=== PATIENT | male | born 1960 | race Two or more races ===

== ENCOUNTER 2021-06-22 11:17 | Inpatient (IN) | payer OTHER ==
[~2021-06-22] VITALS: Ht 188 cm; Wt 114.3 kg
[2021-06-22] VITALS (7 sets, daily range): BP systolic 119–169; BP diastolic 51–73
[2021-06-22] MEDS ORDERED: InsuLIN REG 1unit/0.01ml Soln (100units/ml) IV ONE ×2 (11:30→15:45)
[2021-06-22] MEDS ORDERED: InsuLIN R (HUMAN) 100 UNITS in SODIUM CHL 0.9% 99 ML IV SCH ×2 (11:30→21:15)
[2021-06-22] MEDS ORDERED: INSULIN LANTUS (GLARGINE) 1 /0.01ml (100units/ml) SC ONE (11:30)
[2021-06-22] MEDS ORDERED: DEXTROSE (50%) 50ML SYRG IV PRN ×2 (11:30→14:45)
[2021-06-22] MEDS ORDERED: SODIUM CHLORIDE 0.9% 1,000 ML IVB ONE (11:30)
[2021-06-22] MEDS ORDERED: SUCCINYLCHOLINE CHLORIDE 20 MG/ML 10ML VIAL IV ONE ×2 (13:01→13:15)
[2021-06-22] MEDS ORDERED: MIDAZOLAM DRIP 50 mg/50mL 50 ML IV ONE (13:01)
[2021-06-22] MEDS ORDERED: ETOMIDATE (2MG/ML) 20ML VIAL IV ONE ×2 (13:01→13:15)
[2021-06-22 13:10] LABS: Basophils # (auto) 0.1 10 ^3/uL (0-0.2); Eosinophils # (auto) 0 10 ^3/uL (0-0.8); Hemoglobin 16.2 g/dL (13.5-17.5); Neutrophils % (auto) 88.1 % (37.0-80.0)
[2021-06-22] MEDS: MIDAZOLAM DRIP 50 mg/50mL 50 ML IV SCH ×4 (13:10→22:57)
[2021-06-22 13:12] LABS: Basophils % (auto) 0.3 % (0.0-2.0); Hematocrit 52.9 % (41.0-53.0); Lymphocytes # (auto) 0.6 10 ^3/uL (0.4-5.4); Lymphocytes % (auto) 3.1 % (10.0-50.0); Mean Corpuscular Hemoglobin 28.7 pg (28.0-32.0); Mean Corpuscular Hgb Conc. 30.7 g/dL (32.0-36.0); Mean Corpuscular Volume 93.6 fL (80.0-100.0); Monocytes # (auto) 1.7 10 ^3/uL (0-1.3); Monocytes % (auto) 8.5 % (0.0-12.0); Neutrophils # (auto) 17.5 10 ^3/uL (1.6-8.6); Red Blood Cells 5.65 10^6/uL (4.5-5.90); Red Cell Distribution Width 15.6 % (11.8-14.3); White Blood Cell 19.9 10^3/uL (4.4-10.8)
[2021-06-22 13:20] LABS: Urine Bacteria NONE SEEN /hpf (None Seen); Urine Blood 3+ /uL (Negative); Urine Specific Gravity 1.028 (1.001-1.035); Urine WBC 3 /hpf (0 - 3)
[2021-06-22] MEDS: fentaNYL Drip 2500mCg/250mlNS 250 ML IV SCH (13:25)
[2021-06-22 13:38] LABS: Albumin 3.2 g/dL (3.4-5.0); Calcium 9.8 mg/dL (8.5-10.1); Magnesium 3.4 mg/dL (1.6-2.6); Potassium 5.2 mmol/L (3.5-5.1)
[2021-06-22] MEDS: ACCU-CHEK COMFORT CURVE STRIP VI SCH ×9 (13:42→23:58)
[2021-06-22] MEDS ORDERED: SODIUM BICARBONATE 8.4 % INJ 50ML VIAL IV ONE ×2 (13:45→16:45)
[2021-06-22 13:47] LABS: CRP High Sensitivity 8.47 mg/dL (< 0.3)
[2021-06-22 14:08] LABS: BUN/Creatinine Ratio 23.3; Bilirubin, Total 0.6 mg/dL (0.2-1.0); Total Protein 8.4 g/dL (6.4-8.2)
[2021-06-22] MEDS ORDERED: MORPHINE SULFATE INJECTION 2 MG/ML SYRG IV PRN (14:15)
[2021-06-22] MEDS ORDERED: SODIUM CHLORIDE 0.9% IV ONE (14:15)
[2021-06-22] MEDS ORDERED: cefTRIAXone 1GM/50ML D5W 50 ML IV ONE (14:15)
[2021-06-22] MEDS ORDERED: NITROGLYCERIN 0.4 MG SL TAB SL PRN (14:15)
[2021-06-22 14:30] LABS: Lactic Acid w/Reflex 4.7 mmol/L (0.4-2.0)
[2021-06-22] MEDS ORDERED: SODIUM CHLORIDE 0.9% 3,250 ML IV ONE (14:45)
[2021-06-22] MEDS: InsuLIN R (HUMAN) 100 UNITS in SODIUM CHL 0.9% 99 ML IV SCH ×3 (15:18→16:54)
[2021-06-22] MEDS: SODIUM CHLORIDE 0.9% 1,000 ML IV SCH ×3 (15:24→22:27)
[2021-06-22] MEDS ORDERED: SODIUM BICARBONATE 50ML VIAL 50 ML in SOD CHL 0.45% 1,000 ML IV ONE (15:45)
[2021-06-22 15:46] LABS: Calcium 9.1 mg/dL (8.5-10.1)
[2021-06-22 15:48] LABS: Amylase 261 U/L (25-115); Lipase 359 U/L (73-393)
[2021-06-22 16:17] LABS: BUN/Creatinine Ratio 24.4; Potassium 5.6 mmol/L (3.5-5.1)
[2021-06-22] MEDS ORDERED: FUROSEMIDE 40 MG/4 ML VIAL IV ONE (16:45)
[2021-06-22 16:55] LABS: Alcohol, Urine < 3.0 mg/dL (0-10); Amphetamine Screen, Urine NEGATIVE (NEGATIVE); Benzodiazephine Screen, Urine NEGATIVE (NEGATIVE); Cannabinoid Screen, Urine NEGATIVE (NEGATIVE); Cocaine Screen, Urine NEGATIVE (NEGATIVE); Opiate Scree,Urine NEGATIVE (NEGATIVE); Phencyclidine Screen, Urine NEGATIVE (NEGATIVE)
[2021-06-22 17:00] LABS: Barbiturate Scree,Urine NEGATIVE (NEGATIVE)
[2021-06-22] MEDS ORDERED: SODIUM CHLORIDE 0.9% 1,000 ML IV SCH (18:15)
[2021-06-22 18:42] LABS: Anion Gap 19 (5-15); BUN/Creatinine Ratio 22.7; Blood Urea Nitrogen 65 mg/dL (7-18); Calcium 8.6 mg/dL (8.5-10.1); Carbon Dioxide 14 mmol/L (21-32); Chloride 111 mmol/L (98-107); GFR African American 29 mL/min; GFR Non-African American 24 mL/min; Potassium 4.5 mmol/L (3.5-5.1); Sodium 144 mmol/L (136-145)
[2021-06-22 18:58] LABS: Glucose 571 mg/dL (74-106)
[2021-06-23] VITALS (10 sets, daily range): BP systolic 116–150; BP diastolic 67–76
[2021-06-23 01:07] LABS: Potassium 3.2 mmol/L (3.5-5.1)
[2021-06-23 01:09] LABS: BUN/Creatinine Ratio 23.5
[2021-06-23] MEDS: ACCU-CHEK COMFORT CURVE STRIP VI SCH ×11 (01:38→20:00)
[2021-06-23] MEDS: SODIUM CHLORIDE 0.9% 1,000 ML IV SCH ×3 (02:55→16:18)
[2021-06-23] MEDS: fentaNYL Drip 2500mCg/250mlNS 250 ML IV SCH ×2 (03:38→23:00)
[2021-06-23 05:19] LABS: Basophils # (auto) 0 10 ^3/uL (0-0.2); Basophils % (auto) 0.1 % (0.0-2.0); Eosinophils # (auto) 0 10 ^3/uL (0-0.8); Eosinophils % (auto) 0.1 % (0.0-7.0); Hematocrit 41.8 % (41.0-53.0); Lymphocytes # (auto) 0.7 10 ^3/uL (0.4-5.4); Lymphocytes % (auto) 4.9 % (10.0-50.0); Mean Corpuscular Hemoglobin 28.9 pg (28.0-32.0); Mean Corpuscular Hgb Conc. 33.4 g/dL (32.0-36.0); Mean Corpuscular Volume 86.5 fL (80.0-100.0); Monocytes # (auto) 1.2 10 ^3/uL (0-1.3); Monocytes % (auto) 8.3 % (0.0-12.0); Neutrophils # (auto) 12.3 10 ^3/uL (1.6-8.6); Neutrophils % (auto) 86.6 % (37.0-80.0); Nucleated Red Blood Cells % 0.1 %; Red Blood Cells 4.83 10^6/uL (4.5-5.90); Red Cell Distribution Width 14.5 % (11.8-14.3); White Blood Cell 14.2 10^3/uL (4.4-10.8)
[2021-06-23] MEDS ORDERED: InsuLIN REG 1unit/0.01ml Soln (100units/ml) ONE (05:20)
[2021-06-23 05:34] LABS: Albumin 2.4 g/dL (3.4-5.0); Calcium 8.1 mg/dL (8.5-10.1); Potassium 3.2 mmol/L (3.5-5.1)
[2021-06-23 05:36] LABS: BUN/Creatinine Ratio 24.6
[2021-06-23 05:39] LABS: Bilirubin, Total 0.4 mg/dL (0.2-1.0); Total Protein 6.7 g/dL (6.4-8.2)
[2021-06-23] MEDS: MIDAZOLAM DRIP 50 mg/50mL 50 ML IV SCH ×2 (05:47→20:40)
[2021-06-23] MEDS ORDERED: InsuLIN R (HUMAN) 100 UNITS in SODIUM CHL 0.9% 99 ML IV SCH (07:45)
[2021-06-23] MEDS: cefTRIAXone 1GM/50ML D5W 50 ML IV SCH (09:30)
[2021-06-23] MEDS ORDERED: INSULIN LANTUS (GLARGINE) 1 /0.01ml (100units/ml) SC SCH ×2 (10:00)
[2021-06-23] MEDS: PANTOPRAZOLE 40 MG/10 ML VIAL INJ IV SCH (10:01)
[2021-06-23] MEDS ORDERED: DEXTROSE (50%) 50ML SYRG IV PRN (16:45)
[2021-06-23] MEDS ORDERED: REMDESIVIR PER PHARMACY 0 ML IV SCH (17:00)
[2021-06-23] MEDS ORDERED: ALBUTEROL SULF HFA 90MCG INH 200DOSE IN PRN (17:00)
[2021-06-23] MEDS ORDERED: D5W/SOD CHL 0.45% 1,000 ML IV SCH (17:00)
[2021-06-23] MEDS: SOD CHL 0.45% 1,000 ML IV SCH (17:48)
[2021-06-23] MEDS: ZINC SULFATE 220mg CAP or TAB PO SCH (17:54)
[2021-06-23] MEDS: ASCORBIC ACID 1,000 MG TAB PO SCH (17:54)
[2021-06-23] MEDS: IVERMECTIN 3 MG TAB PO SCH (17:56)
[2021-06-23] MEDS: CHOLECALCIFEROL (VITD3) 2,000 UNIT CAP/TAB PO SCH (17:56)
[2021-06-23] MEDS: IPRATROPIUM BROMIDE HFA AER IN SCH ×2 (18:00→22:00)
[2021-06-23] MEDS ORDERED: REMDESIVIR 200 MG in NS 210ml LOADING DOSE ADULT IV ONE (18:30)
[2021-06-23] MEDS: InsuLIN REG 1unit/0.01ml Soln (100units/ml) SC SCH (20:22)
[2021-06-23] MEDS: ENOXAPARIN SOD 40 MG/0.4 ML SYRINGE SC SCH (22:00)
[2021-06-23] MEDS ORDERED: BUDESONIDE (INHALATION) 180 MCG IH IN SCH (22:00)
[2021-06-23] MEDS: INSULIN LANTUS (GLARGINE) 1 /0.01ml (100units/ml) SC SCH (23:47)
[2021-06-24] VITALS (8 sets, daily range): BP systolic 108–138; BP diastolic 46–84
[2021-06-24] MEDS: ACCU-CHEK COMFORT CURVE STRIP VI SCH ×7 (00:13→23:37)
[2021-06-24] MEDS: InsuLIN REG 1unit/0.01ml Soln (100units/ml) SC SCH ×7 (00:15→23:40)
[2021-06-24] MEDS: MIDAZOLAM DRIP 50 mg/50mL 50 ML IV SCH ×4 (00:26→21:25)
[2021-06-24] MEDS: SOD CHL 0.45% 1,000 ML IV SCH ×2 (06:20→21:22)
[2021-06-24] MEDS: fentaNYL Drip 2500mCg/250mlNS 250 ML IV SCH (06:25)
[2021-06-24] MEDS: IPRATROPIUM BROM 0.5 MG/2.5ML INH SOL NEB SCH ×3 (07:20→22:00)
[2021-06-24] MEDS: BUDESONIDE (INHALATION) 0.5 MG/2 ML NEB NEB SCH ×2 (09:39→22:00)
[2021-06-24] MEDS: cefTRIAXone 1GM/50ML D5W 50 ML IV SCH (10:14)
[2021-06-24] MEDS ORDERED: ROCURONIUM 10MG/ML 10ML VIAL IV ONE (10:30)
[2021-06-24] MEDS ORDERED: ETOMIDATE (2MG/ML) 20ML VIAL IV ONE (10:30)
[2021-06-24] MEDS: NOREPINEPHRINE 8 MG/250ML KIT 250 ML IV SCH (10:30)
[2021-06-24] MEDS: PROPOFOL 100 ML IV SCH (10:30)
[2021-06-24] MEDS: PANTOPRAZOLE 40 MG/10 ML VIAL INJ IV SCH (10:45)
[2021-06-24] MEDS: ZINC SULFATE 220mg CAP or TAB PO SCH (11:35)
[2021-06-24] MEDS: IVERMECTIN 3 MG TAB PO SCH (11:35)
[2021-06-24] MEDS: ENOXAPARIN SOD 40 MG/0.4 ML SYRINGE SC SCH ×2 (11:36→22:01)
[2021-06-24] MEDS: ASCORBIC ACID 1,000 MG TAB PO SCH (11:36)
[2021-06-24] MEDS: CHOLECALCIFEROL (VITD3) 2,000 UNIT CAP/TAB PO SCH (11:36)
[2021-06-24 11:37] LABS: Albumin 1.7 g/dL (3.4-5.0); Calcium 8.2 mg/dL (8.5-10.1); Magnesium 3.3 mg/dL (1.6-2.6); Potassium 3.9 mmol/L (3.5-5.1)
[2021-06-24 11:40] LABS: BUN/Creatinine Ratio 25.7; Bilirubin, Total 0.5 mg/dL (0.2-1.0); Total Protein 6.4 g/dL (6.4-8.2)
[2021-06-24] MEDS ORDERED: REMDESIVIR 100mg 100 MG in SODIUM CHL 0.9% 230 ML IV SCH (15:00)
[2021-06-24] MEDS: FREE WATER GT SCH ×2 (18:00→22:01)
[2021-06-24] MEDS: INSULIN LANTUS (GLARGINE) 1 /0.01ml (100units/ml) SC SCH (22:00)
[2021-06-24 22:29] LABS: Basophils # (auto) 0.1 10 ^3/uL (0-0.2); Basophils % (auto) 0.5 % (0.0-2.0); Eosinophils # (auto) 0.1 10 ^3/uL (0-0.8); Hematocrit 42.6 % (41.0-53.0); Lymphocytes # (auto) 0.7 10 ^3/uL (0.4-5.4); Mean Corpuscular Hemoglobin 28.5 pg (28.0-32.0); Mean Corpuscular Hgb Conc. 32.8 g/dL (32.0-36.0); Mean Corpuscular Volume 86.8 fL (80.0-100.0); Monocytes # (auto) 0.7 10 ^3/uL (0-1.3); Monocytes % (auto) 6.1 % (0.0-12.0); Neutrophils # (auto) 9.7 10 ^3/uL (1.6-8.6); Neutrophils % (auto) 86.4 % (37.0-80.0); Red Blood Cells 4.91 10^6/uL (4.5-5.90); Red Cell Distribution Width 15.1 % (11.8-14.3); White Blood Cell 11.2 10^3/uL (4.4-10.8)
[2021-06-24 23:23] LABS: INR 1.08 (0.9-1.15)
[2021-06-25] VITALS (12 sets, daily range): BP systolic 102–120; BP diastolic 41–77
[2021-06-25] MEDS: MIDAZOLAM DRIP 50 mg/50mL 50 ML IV SCH (03:36)
[2021-06-25] MEDS: FREE WATER GT SCH ×6 (03:36→22:01)
[2021-06-25] MEDS: ACCU-CHEK COMFORT CURVE STRIP VI SCH ×4 (03:45→18:18)
[2021-06-25] MEDS: InsuLIN REG 1unit/0.01ml Soln (100units/ml) SC SCH ×4 (04:19→18:18)
[2021-06-25] MEDS ORDERED: ACETAMINOPHEN 650 mg PER 20.3 mL UD NG ONE (05:45)
[2021-06-25] MEDS: IPRATROPIUM BROM 0.5 MG/2.5ML INH SOL NEB SCH ×2 (07:00→13:55)
[2021-06-25] MEDS: ALBUTEROL SULF 2.5 MG/0.5ML(0.5%) NEB SOLN NEB PRN ×2 (07:01→13:55)
[2021-06-25] MEDS: BUDESONIDE (INHALATION) 0.5 MG/2 ML NEB NEB SCH (07:01)
[2021-06-25 07:41] LABS: Albumin 1.8 g/dL (3.4-5.0); BUN/Creatinine Ratio 25.5; Calcium 8.2 mg/dL (8.5-10.1); Potassium 3.5 mmol/L (3.5-5.1)
[2021-06-25 07:43] LABS: Bilirubin, Total 0.5 mg/dL (0.2-1.0); Total Protein 5.7 g/dL (6.4-8.2)
[2021-06-25] MEDS ORDERED: DEXTROSE (50%) 50ML SYRG IV PRN (09:15)
[2021-06-25] MEDS: D5W 5% 1,000 ML IV SCH ×2 (09:39→20:19)
[2021-06-25] MEDS: cefTRIAXone 1GM/50ML D5W 50 ML IV SCH (09:40)
[2021-06-25] MEDS: NOREPINEPHRINE 8 MG/250ML KIT 250 ML IV SCH (10:30)
[2021-06-25] MEDS: fentaNYL Drip 2500mCg/250mlNS 250 ML IV SCH (10:30)
[2021-06-25] MEDS: PROPOFOL 100 ML IV SCH (10:30)
[2021-06-25] MEDS: PANTOPRAZOLE 40 MG/10 ML VIAL INJ IV SCH (10:44)
[2021-06-25] MEDS: ZINC SULFATE 220mg CAP or TAB PO SCH (10:46)
[2021-06-25] MEDS: ASCORBIC ACID 1,000 MG TAB PO SCH (10:47)
[2021-06-25] MEDS: IVERMECTIN 3 MG TAB PO SCH (10:47)
[2021-06-25] MEDS: CHOLECALCIFEROL (VITD3) 2,000 UNIT CAP/TAB PO SCH (10:48)
[2021-06-25] MEDS: ENOXAPARIN SOD 100 MG/1 ML SYRINGE SC SCH ×2 (10:58→22:01)
[2021-06-25] MEDS ORDERED: REMDESIVIR 100mg 100 MG in SODIUM CHL 0.9% 230 ML IV SCH ×3 (15:00→20:00)
[2021-06-25] MEDS ORDERED: MICAFUNGIN SODIUM 100 MG in SODIUM CHL 0.9% 100 ML IV ONE (16:15)
[2021-06-25] MEDS ORDERED: ACETAMINOPHEN 650 mg PER 20.3 mL UD PO PRN (18:15)
[2021-06-25] MEDS: INSULIN LANTUS (GLARGINE) 1 /0.01ml (100units/ml) SC SCH (22:15)
[2021-06-26] VITALS (43 sets, daily range): BP systolic 104–169; BP diastolic 61–93
[2021-06-26] MEDS: ACCU-CHEK COMFORT CURVE STRIP VI SCH ×4 (00:04→17:53)
[2021-06-26] MEDS: InsuLIN REG 1unit/0.01ml Soln (100units/ml) SC SCH ×4 (00:07→17:53)
[2021-06-26] MEDS: ALBUTEROL SULF 2.5 MG/0.5ML(0.5%) NEB SOLN NEB PRN ×3 (00:51→18:56)
[2021-06-26] MEDS: BUDESONIDE (INHALATION) 0.5 MG/2 ML NEB NEB SCH ×3 (00:52→18:55)
[2021-06-26] MEDS: IPRATROPIUM BROM 0.5 MG/2.5ML INH SOL NEB SCH ×4 (00:52→18:56)
[2021-06-26] MEDS: D5W 5% 1,000 ML IV SCH ×3 (01:15→17:15)
[2021-06-26] MEDS: FREE WATER GT SCH ×6 (02:05→21:12)
[2021-06-26 07:33] LABS: Albumin 1.7 g/dL (3.4-5.0); Potassium 3.6 mmol/L (3.5-5.1)
[2021-06-26 07:38] LABS: Basophils # (auto) 0.1 10 ^3/uL (0-0.2); Basophils % (auto) 0.6 % (0.0-2.0); Eosinophils # (auto) 0.2 10 ^3/uL (0-0.8); Eosinophils % (auto) 1.4 % (0.0-7.0); Hematocrit 42.7 % (41.0-53.0); Lymphocytes # (auto) 1.5 10 ^3/uL (0.4-5.4); Lymphocytes % (auto) 10.2 % (10.0-50.0); Mean Corpuscular Hemoglobin 28.8 pg (28.0-32.0); Mean Corpuscular Hgb Conc. 32.7 g/dL (32.0-36.0); Monocytes # (auto) 1.1 10 ^3/uL (0-1.3); Monocytes % (auto) 7.2 % (0.0-12.0); Neutrophils # (auto) 11.9 10 ^3/uL (1.6-8.6); Neutrophils % (auto) 80.6 % (37.0-80.0); Nucleated Red Blood Cells % 0.2 %; Red Blood Cells 4.85 10^6/uL (4.5-5.90); Red Cell Distribution Width 15.7 % (11.8-14.3); White Blood Cell 14.7 10^3/uL (4.4-10.8)
[2021-06-26 07:39] LABS: BUN/Creatinine Ratio 21.3; Bilirubin, Total 0.4 mg/dL (0.2-1.0); Total Protein 6.5 g/dL (6.4-8.2)
[2021-06-26] MEDS: cefTRIAXone 1GM/50ML D5W 50 ML IV SCH (08:34)
[2021-06-26] MEDS: PANTOPRAZOLE 40 MG/10 ML VIAL INJ IV SCH ×2 (08:35→21:07)
[2021-06-26] MEDS: IVERMECTIN 3 MG TAB PO SCH (08:35)
[2021-06-26] MEDS: CHOLECALCIFEROL (VITD3) 2,000 UNIT CAP/TAB PO SCH (08:35)
[2021-06-26] MEDS: ASCORBIC ACID 1,000 MG TAB PO SCH (08:35)
[2021-06-26] MEDS: ZINC SULFATE 220mg CAP or TAB PO SCH (08:35)
[2021-06-26] MEDS: ENOXAPARIN SOD 100 MG/1 ML SYRINGE SC SCH ×2 (10:00→21:07)
[2021-06-26] MEDS ORDERED: MICAFUNGIN SODIUM 100 MG in SODIUM CHL 0.9% 100 ML IV SCH (10:00)
[2021-06-26] MEDS: fentaNYL Drip 2500mCg/250mlNS 250 ML IV SCH ×2 (10:30→20:00)
[2021-06-26] MEDS: PROPOFOL 100 ML IV SCH ×2 (10:30→22:29)
[2021-06-26] MEDS: MIDAZOLAM DRIP 50 mg/50mL 50 ML IV SCH (10:30)
[2021-06-26] MEDS: NOREPINEPHRINE 8 MG/250ML KIT 250 ML IV SCH (10:30)
[2021-06-26] MEDS ORDERED: D5W 5% IV SCH (10:45)
[2021-06-26] MEDS ORDERED: VORICONAZOLE IV SCH (10:45)
[2021-06-26] MEDS ORDERED: REMDESIVIR PER PHARMACY 0 ML IV SCH (14:30)
[2021-06-26] MEDS: REMDESIVIR 100mg 100 MG in SODIUM CHL 0.9% 230 ML IV SCH (17:00)
[2021-06-26] MEDS ORDERED: MIDAZOLAM DRIP 50 mg/50mL 50 ML IV SCH (18:15)
[2021-06-26 18:58] LABS: Basophils # (auto) 0 10 ^3/uL (0-0.2); Basophils % (auto) 0.3 % (0.0-2.0); Eosinophils # (auto) 0.1 10 ^3/uL (0-0.8); Hematocrit 38.6 % (41.0-53.0); Hemoglobin 12.5 g/dL (13.5-17.5); Lymphocytes # (auto) 0.8 10 ^3/uL (0.4-5.4); Lymphocytes % (auto) 5.8 % (10.0-50.0); Mean Corpuscular Hemoglobin 28.5 pg (28.0-32.0); Mean Corpuscular Hgb Conc. 32.3 g/dL (32.0-36.0); Mean Corpuscular Volume 88.3 fL (80.0-100.0); Monocytes # (auto) 0.9 10 ^3/uL (0-1.3); Monocytes % (auto) 6.8 % (0.0-12.0); Neutrophils # (auto) 11.4 10 ^3/uL (1.6-8.6); Neutrophils % (auto) 86.1 % (37.0-80.0); Red Blood Cells 4.37 10^6/uL (4.5-5.90); Red Cell Distribution Width 15.4 % (11.8-14.3); White Blood Cell 13.3 10^3/uL (4.4-10.8)
[2021-06-26 19:26] LABS: Albumin 1.6 g/dL (3.4-5.0); Magnesium 2.7 mg/dL (1.6-2.6); Potassium 3.8 mmol/L (3.5-5.1)
[2021-06-26 19:30] LABS: BUN/Creatinine Ratio 19.5; Bilirubin, Total 0.2 mg/dL (0.2-1.0); Phosphorus 2.4 mg/dL (2.5-4.90)
[2021-06-26] MEDS ORDERED: VORICONAZOLE INJ 0 MG in D5W 5% 250 ML IV SCH (22:00)
[2021-06-26] MEDS: INSULIN LANTUS (GLARGINE) 1 /0.01ml (100units/ml) SC SCH (22:03)
[2021-06-26] MEDS: VORICONAZOLE INJ 400 MG in D5W 5% 250 ML IV SCH (22:30)
[2021-06-27] VITALS (107 sets, daily range): BP systolic 92–159; BP diastolic 56–85
[2021-06-27] MEDS: ACCU-CHEK COMFORT CURVE STRIP VI SCH ×4 (00:09→18:38)
[2021-06-27] MEDS: PROPOFOL 100 ML IV SCH ×2 (00:33→09:16)
[2021-06-27] MEDS: FREE WATER GT SCH ×6 (00:36→22:00)
[2021-06-27 01:43] LABS: Urine Amorphous Crystal FEW /hpf (None Seen); Urine Bacteria NONE SEEN /hpf (None Seen); Urine Blood 3+ /uL (Negative); Urine Hyaline Cast FEW /lpf (0 - 2); Urine Mucus FEW (None Seen); Urine WBC 15 /hpf (0 - 3)
[2021-06-27 04:54] LABS: Basophils # (auto) 0.1 10 ^3/uL (0-0.2); Basophils % (auto) 1.1 % (0.0-2.0); Eosinophils # (auto) 0.1 10 ^3/uL (0-0.8); Eosinophils % (auto) 1.1 % (0.0-7.0); Hematocrit 36.1 % (41.0-53.0); Hemoglobin 11.9 g/dL (13.5-17.5); Lymphocytes # (auto) 0.8 10 ^3/uL (0.4-5.4); Mean Corpuscular Hemoglobin 29.1 pg (28.0-32.0); Mean Corpuscular Hgb Conc. 32.9 g/dL (32.0-36.0); Mean Corpuscular Volume 88.5 fL (80.0-100.0); Monocytes # (auto) 0.8 10 ^3/uL (0-1.3); Monocytes % (auto) 6.3 % (0.0-12.0); Neutrophils # (auto) 10.8 10 ^3/uL (1.6-8.6); Neutrophils % (auto) 85.5 % (37.0-80.0); Nucleated Red Blood Cells % 0.1 %; Red Blood Cells 4.08 10^6/uL (4.5-5.90); Red Cell Distribution Width 15.3 % (11.8-14.3); White Blood Cell 12.6 10^3/uL (4.4-10.8)
[2021-06-27 05:11] LABS: Albumin 1.5 g/dL (3.4-5.0); Calcium 7.9 mg/dL (8.5-10.1); Magnesium 2.7 mg/dL (1.6-2.6); Potassium 3.3 mmol/L (3.5-5.1)
[2021-06-27] MEDS: fentaNYL Drip 2500mCg/250mlNS 250 ML IV SCH (05:18)
[2021-06-27 05:19] LABS: BUN/Creatinine Ratio 17.6; Bilirubin, Total 0.2 mg/dL (0.2-1.0); CRP High Sensitivity 16.7 mg/dL (< 0.3); Total Protein 5.7 g/dL (6.4-8.2)
[2021-06-27 05:27] LABS: INR 1.08 (0.9-1.15)
[2021-06-27] MEDS: BUDESONIDE (INHALATION) 0.5 MG/2 ML NEB NEB SCH ×2 (06:06→22:18)
[2021-06-27] MEDS: ALBUTEROL SULF 2.5 MG/0.5ML(0.5%) NEB SOLN NEB PRN ×2 (06:06→22:18)
[2021-06-27] MEDS: IPRATROPIUM BROM 0.5 MG/2.5ML INH SOL NEB SCH ×3 (06:06→22:18)
[2021-06-27] MEDS: InsuLIN REG 1unit/0.01ml Soln (100units/ml) SC SCH ×4 (06:15→18:40)
[2021-06-27] MEDS: cefTRIAXone 1GM/50ML D5W 50 ML IV SCH (09:15)
[2021-06-27] MEDS: ENOXAPARIN SOD 100 MG/1 ML SYRINGE SC SCH ×2 (10:19→21:59)
[2021-06-27] MEDS: PANTOPRAZOLE 40 MG/10 ML VIAL INJ IV SCH ×2 (10:19→21:59)
[2021-06-27] MEDS: ZINC SULFATE 220mg CAP or TAB PO SCH (10:20)
[2021-06-27] MEDS: CHOLECALCIFEROL (VITD3) 2,000 UNIT CAP/TAB PO SCH (10:20)
[2021-06-27] MEDS: ASCORBIC ACID 1,000 MG TAB PO SCH (10:20)
[2021-06-27] MEDS: NOREPINEPHRINE 8 MG/250ML KIT 250 ML IV SCH (10:30)
[2021-06-27] MEDS: VORICONAZOLE INJ 400 MG in D5W 5% 250 ML IV SCH ×2 (12:46→21:59)
[2021-06-27] MEDS ORDERED: MEROPENEM 1GM IVPB 100 ML IV ONE (14:15)
[2021-06-27] MEDS: D5W 5% 1,000 ML IV SCH (15:37)
[2021-06-27] MEDS: REMDESIVIR 100mg 100 MG in SODIUM CHL 0.9% 230 ML IV SCH (15:37)
[2021-06-27] MEDS: ACETAMINOPHEN 650 mg PER 20.3 mL UD PO PRN (15:44)
[2021-06-27] MEDS: INSULIN LANTUS (GLARGINE) 1 /0.01ml (100units/ml) SC SCH (22:00)
[2021-06-27] MEDS ORDERED: MEROPENEM 1GM IVPB 100 ML IV SCH (22:00)
[2021-06-27] MEDS: POTASSIUM CHL 20MEQ/100ML 100 ML IV SCH (23:45)
[2021-06-28] VITALS (102 sets, daily range): BP systolic 107–159; BP diastolic 59–92
[2021-06-28] MEDS: ACCU-CHEK COMFORT CURVE STRIP VI SCH ×5 (00:03→23:50)
[2021-06-28] MEDS: InsuLIN REG 1unit/0.01ml Soln (100units/ml) SC SCH ×5 (00:12→23:50)
[2021-06-28] MEDS: D5W 5% 1,000 ML IV SCH (00:15)
[2021-06-28] MEDS: FREE WATER GT SCH ×6 (01:30→22:00)
[2021-06-28] MEDS: POTASSIUM CHL 20MEQ/100ML 100 ML IV SCH (01:45)
[2021-06-28 05:11] LABS: Basophils # (auto) 0 10 ^3/uL (0-0.2); Basophils % (auto) 0.2 % (0.0-2.0); Eosinophils # (auto) 0.1 10 ^3/uL (0-0.8); Eosinophils % (auto) 1.1 % (0.0-7.0); Hematocrit 35.7 % (41.0-53.0); Lymphocytes # (auto) 0.7 10 ^3/uL (0.4-5.4); Lymphocytes % (auto) 7.8 % (10.0-50.0); Mean Corpuscular Hemoglobin 29.2 pg (28.0-32.0); Mean Corpuscular Hgb Conc. 33.5 g/dL (32.0-36.0); Mean Corpuscular Volume 87.2 fL (80.0-100.0); Monocytes # (auto) 0.8 10 ^3/uL (0-1.3); Monocytes % (auto) 9.3 % (0.0-12.0); Neutrophils # (auto) 7.4 10 ^3/uL (1.6-8.6); Neutrophils % (auto) 81.6 % (37.0-80.0); Red Cell Distribution Width 15.4 % (11.8-14.3); White Blood Cell 9.1 10^3/uL (4.4-10.8)
[2021-06-28 05:27] LABS: Anion Gap 5 (5-15); BUN/Creatinine Ratio 16.3; Blood Urea Nitrogen 29 mg/dL (7-18); Calcium 8.1 mg/dL (8.5-10.1); Carbon Dioxide 20 mmol/L (21-32); Chloride 124 mmol/L (98-107); GFR African American 50 mL/min; GFR Non-African American 42 mL/min; Glucose 299 mg/dL (74-106); Potassium 3.6 mmol/L (3.5-5.1); Sodium 149 mmol/L (136-145)
[2021-06-28 06:13] LABS: INR 1.06 (0.9-1.15)
[2021-06-28] MEDS: IPRATROPIUM BROM 0.5 MG/2.5ML INH SOL NEB SCH ×3 (06:38→18:37)
[2021-06-28] MEDS: BUDESONIDE (INHALATION) 0.5 MG/2 ML NEB NEB SCH ×2 (06:38→18:37)
[2021-06-28 08:48] LABS: CRP High Sensitivity > 19.0 mg/dL (< 0.3)
[2021-06-28] MEDS: CHOLECALCIFEROL (VITD3) 2,000 UNIT CAP/TAB PO SCH (10:01)
[2021-06-28] MEDS: ZINC SULFATE 220mg CAP or TAB PO SCH (10:01)
[2021-06-28] MEDS: PANTOPRAZOLE 40 MG/10 ML VIAL INJ IV SCH ×2 (10:01→22:00)
[2021-06-28] MEDS: ASCORBIC ACID 1,000 MG TAB PO SCH (10:02)
[2021-06-28] MEDS: ENOXAPARIN SOD 100 MG/1 ML SYRINGE SC SCH ×2 (10:02→22:00)
[2021-06-28] MEDS: VORICONAZOLE INJ 400 MG in D5W 5% 250 ML IV SCH ×2 (10:48→20:35)
[2021-06-28] MEDS ORDERED: cefTRIAXone 1GM/50ML D5W 50 ML IV ONE (14:15)
[2021-06-28] MEDS: REMDESIVIR 100mg 100 MG in SODIUM CHL 0.9% 230 ML IV SCH (15:24)
[2021-06-28] MEDS: LORazepam 2MG/ML-1ML VIAL IV PRN (16:27)
[2021-06-28] MEDS: ACETAMINOPHEN 650 mg PER 20.3 mL UD PO PRN (17:25)
[2021-06-28] MEDS: ACETAMINOPHEN 650 MG RECT SUPP PR PRN (18:32)
[2021-06-28] MEDS: ALBUTEROL SULF 2.5 MG/0.5ML(0.5%) NEB SOLN NEB PRN (18:37)
[2021-06-28] MEDS: INSULIN LANTUS (GLARGINE) 1 /0.01ml (100units/ml) SC SCH (22:00)
[2021-06-29] VITALS (97 sets, daily range): BP systolic 94–155; BP diastolic 54–87
[2021-06-29] MEDS: FREE WATER GT SCH ×6 (02:00→21:40)
[2021-06-29 05:45] LABS: Albumin 1.3 g/dL (3.4-5.0); Calcium 8.4 mg/dL (8.5-10.1); Potassium 3.2 mmol/L (3.5-5.1)
[2021-06-29 05:48] LABS: Bilirubin, Total 0.2 mg/dL (0.2-1.0)
[2021-06-29] MEDS: InsuLIN REG 1unit/0.01ml Soln (100units/ml) SC SCH ×4 (06:00→23:51)
[2021-06-29] MEDS: ACCU-CHEK COMFORT CURVE STRIP VI SCH ×4 (06:10→23:50)
[2021-06-29 07:04] LABS: Basophils # (auto) 0 10 ^3/uL (0-0.2); Basophils % (auto) 0.2 % (0.0-2.0); Eosinophils # (auto) 0.1 10 ^3/uL (0-0.8); Eosinophils % (auto) 1.6 % (0.0-7.0); Hematocrit 37.4 % (41.0-53.0); Hemoglobin 12.8 g/dL (13.5-17.5); Lymphocytes # (auto) 0.8 10 ^3/uL (0.4-5.4); Lymphocytes % (auto) 10.2 % (10.0-50.0); Mean Corpuscular Hemoglobin 29.4 pg (28.0-32.0); Mean Corpuscular Hgb Conc. 34.1 g/dL (32.0-36.0); Mean Corpuscular Volume 86.2 fL (80.0-100.0); Monocytes # (auto) 0.8 10 ^3/uL (0-1.3); Monocytes % (auto) 10.9 % (0.0-12.0); Neutrophils # (auto) 5.9 10 ^3/uL (1.6-8.6); Neutrophils % (auto) 77.1 % (37.0-80.0); Nucleated Red Blood Cells % 0.1 %; Red Blood Cells 4.34 10^6/uL (4.5-5.90); Red Cell Distribution Width 15.2 % (11.8-14.3); White Blood Cell 7.6 10^3/uL (4.4-10.8)
[2021-06-29] MEDS: cefTRIAXone 1GM/50ML D5W 50 ML IV SCH (09:01)
[2021-06-29] MEDS: PANTOPRAZOLE 40 MG/10 ML VIAL INJ IV SCH ×2 (09:02→21:20)
[2021-06-29] MEDS: ENOXAPARIN SOD 100 MG/1 ML SYRINGE SC SCH (09:03)
[2021-06-29] MEDS: ZINC SULFATE 220mg CAP or TAB PO SCH (09:03)
[2021-06-29] MEDS: ASCORBIC ACID 1,000 MG TAB PO SCH (09:03)
[2021-06-29] MEDS: CHOLECALCIFEROL (VITD3) 2,000 UNIT CAP/TAB PO SCH (09:03)
[2021-06-29] MEDS: VORICONAZOLE INJ 400 MG in D5W 5% 250 ML IV SCH ×2 (09:07→21:40)
[2021-06-29] MEDS: LORazepam 2MG/ML-1ML VIAL IV PRN ×3 (09:10→21:18)
[2021-06-29] MEDS: ALBUTEROL SULF 2.5 MG/0.5ML(0.5%) NEB SOLN NEB PRN (09:59)
[2021-06-29] MEDS: IPRATROPIUM BROM 0.5 MG/2.5ML INH SOL NEB SCH ×2 (09:59→22:03)
[2021-06-29] MEDS: BUDESONIDE (INHALATION) 0.5 MG/2 ML NEB NEB SCH ×2 (10:01→22:03)
[2021-06-29] MEDS ORDERED: AZITHROMYCIN 500MG/ 250ML 250 ML IV ONE (11:30)
[2021-06-29] MEDS ORDERED: D5W/SOD CHL 0.45% 1,000 ML IV ONE (11:45)
[2021-06-29] MEDS ORDERED: POTASSIUM CHL 20MEQ/100ML 100 ML IV ONE (12:41)
[2021-06-29] MEDS: POTASSIUM CHL 20MEQ/100ML 100 ML IV SCH ×2 (12:44→15:02)
[2021-06-29] MEDS: fentaNYL Drip 2500mCg/250mlNS 250 ML IV SCH (18:16)
[2021-06-29] MEDS: ENOXAPARIN SOD 40 MG/0.4 ML SYRINGE SC SCH (21:21)
[2021-06-29] MEDS: INSULIN LANTUS (GLARGINE) 1 /0.01ml (100units/ml) SC SCH (22:00)
[2021-06-30] VITALS (96 sets, daily range): BP systolic 76–153; BP diastolic 10–83
[2021-06-30] MEDS: FREE WATER GT SCH ×6 (02:00→22:00)
[2021-06-30] MEDS: ACCU-CHEK COMFORT CURVE STRIP VI SCH ×3 (06:00→17:49)
[2021-06-30] MEDS: InsuLIN REG 1unit/0.01ml Soln (100units/ml) SC SCH ×3 (06:00→17:49)
[2021-06-30] MEDS: BUDESONIDE (INHALATION) 0.5 MG/2 ML NEB NEB SCH ×2 (06:15→21:10)
[2021-06-30] MEDS: IPRATROPIUM BROM 0.5 MG/2.5ML INH SOL NEB SCH ×3 (06:15→21:09)
[2021-06-30] MEDS: ALBUTEROL SULF 2.5 MG/0.5ML(0.5%) NEB SOLN NEB PRN ×2 (06:15→21:09)
[2021-06-30] MEDS: LORazepam 2MG/ML-1ML VIAL IV PRN (07:08)
[2021-06-30 09:35] LABS: BUN/Creatinine Ratio 19.7; Calcium 8.6 mg/dL (8.5-10.1); Magnesium 2.5 mg/dL (1.6-2.6); Potassium 5.3 mmol/L (3.5-5.1)
[2021-06-30] MEDS: ENOXAPARIN SOD 40 MG/0.4 ML SYRINGE SC SCH ×2 (09:53→22:00)
[2021-06-30] MEDS: PANTOPRAZOLE 40 MG/10 ML VIAL INJ IV SCH ×2 (09:53→22:00)
[2021-06-30] MEDS: cefTRIAXone 1GM/50ML D5W 50 ML IV SCH (09:53)
[2021-06-30] MEDS: CHOLECALCIFEROL (VITD3) 2,000 UNIT CAP/TAB PO SCH (09:54)
[2021-06-30] MEDS: ZINC SULFATE 220mg CAP or TAB PO SCH (09:54)
[2021-06-30] MEDS: ASCORBIC ACID 1,000 MG TAB PO SCH (09:54)
[2021-06-30] MEDS ORDERED: AZITHROMYCIN 500MG/ 250ML 250 ML IV SCH (10:00)
[2021-06-30] MEDS: MIDAZOLAM DRIP 50 mg/50mL 50 ML IV SCH ×2 (10:52→17:18)
[2021-06-30] MEDS: ACETAMINOPHEN 650 MG RECT SUPP PR PRN (11:37)
[2021-06-30] MEDS: fentaNYL Drip 2500mCg/250mlNS 250 ML IV SCH (12:27)
[2021-06-30] MEDS: VORICONAZOLE INJ 400 MG in D5W 5% 250 ML IV SCH ×2 (12:28→22:00)
[2021-06-30] MEDS: SOD CHL 0.45% 1,000 ML IV SCH ×2 (12:30→22:33)
[2021-06-30] MEDS ORDERED: MEROPENEM 1GM IVPB 100 ML IV ONE (13:45)
[2021-06-30] MEDS: Glucerna 1.2 Cal 1Liter BOTTLE GT SCH (14:30)
[2021-06-30] MEDS: INSULIN LANTUS (GLARGINE) 1 /0.01ml (100units/ml) SC SCH (22:00)
[2021-06-30] MEDS: MEROPENEM 1GM IVPB 100 ML IV SCH (23:04)
[2021-07-01] VITALS (94 sets, daily range): BP systolic 91–152; BP diastolic 46–78
[2021-07-01] MEDS: ACCU-CHEK COMFORT CURVE STRIP VI SCH ×4 (00:02→17:11)
[2021-07-01] MEDS: FREE WATER GT SCH ×6 (02:00→22:15)
[2021-07-01] MEDS: SOD CHL 0.45% 1,000 ML IV SCH ×4 (05:37→16:51)
[2021-07-01] MEDS: InsuLIN REG 1unit/0.01ml Soln (100units/ml) SC SCH ×4 (06:00→17:24)
[2021-07-01] MEDS: ALBUTEROL SULF 2.5 MG/0.5ML(0.5%) NEB SOLN NEB PRN ×3 (06:19→22:47)
[2021-07-01] MEDS: IPRATROPIUM BROM 0.5 MG/2.5ML INH SOL NEB SCH ×3 (06:19→22:46)
[2021-07-01] MEDS: MEROPENEM 1GM IVPB 100 ML IV SCH ×3 (09:02→23:51)
[2021-07-01] MEDS: ZINC SULFATE 220mg CAP or TAB PO SCH (09:02)
[2021-07-01] MEDS: PANTOPRAZOLE 40 MG/10 ML VIAL INJ IV SCH ×2 (09:02→22:15)
[2021-07-01] MEDS: ASCORBIC ACID 1,000 MG TAB PO SCH (09:02)
[2021-07-01] MEDS: CHOLECALCIFEROL (VITD3) 2,000 UNIT CAP/TAB PO SCH (09:03)
[2021-07-01] MEDS: ENOXAPARIN SOD 40 MG/0.4 ML SYRINGE SC SCH ×2 (09:05→22:16)
[2021-07-01] MEDS: BUDESONIDE (INHALATION) 0.5 MG/2 ML NEB NEB SCH ×2 (10:00→22:46)
[2021-07-01 10:23] LABS: Basophils # (auto) 0 10 ^3/uL (0-0.2); Basophils % (auto) 0.3 % (0.0-2.0); Eosinophils # (auto) 0.1 10 ^3/uL (0-0.8); Hematocrit 38.9 % (41.0-53.0); Hemoglobin 12.2 g/dL (13.5-17.5); Lymphocytes # (auto) 1.2 10 ^3/uL (0.4-5.4); Lymphocytes % (auto) 11.4 % (10.0-50.0); Mean Corpuscular Hemoglobin 29.1 pg (28.0-32.0); Mean Corpuscular Hgb Conc. 31.5 g/dL (32.0-36.0); Mean Corpuscular Volume 92.3 fL (80.0-100.0); Monocytes # (auto) 0.7 10 ^3/uL (0-1.3); Monocytes % (auto) 6.4 % (0.0-12.0); Neutrophils # (auto) 8.7 10 ^3/uL (1.6-8.6); Neutrophils % (auto) 80.9 % (37.0-80.0); Nucleated Red Blood Cells % 0.1 %; Red Blood Cells 4.21 10^6/uL (4.5-5.90); Red Cell Distribution Width 16.2 % (11.8-14.3); White Blood Cell 10.8 10^3/uL (4.4-10.8)
[2021-07-01] MEDS: DexAMETHasone INJECTION 10 MG in D5W 5% 50 ML IV SCH (11:06)
[2021-07-01] MEDS: VORICONAZOLE INJ 400 MG in D5W 5% 250 ML IV SCH ×2 (13:46→22:15)
[2021-07-01] MEDS: ACETAMINOPHEN 650 MG RECT SUPP PR PRN (13:54)
[2021-07-01] MEDS: fentaNYL Drip 2500mCg/250mlNS 250 ML IV SCH ×2 (13:55→22:51)
[2021-07-01 14:35] LABS: Albumin 1.3 g/dL (3.4-5.0); BUN/Creatinine Ratio 15.5; Calcium 8.3 mg/dL (8.5-10.1); Magnesium 2.3 mg/dL (1.6-2.6); Potassium 3.3 mmol/L (3.5-5.1)
[2021-07-01 14:44] LABS: Total Protein 5.8 g/dL (6.4-8.2)
[2021-07-01 14:50] LABS: Bilirubin, Total 0.3 mg/dL (0.2-1.0)
[2021-07-01 14:51] LABS: CRP High Sensitivity 18.8 mg/dL (< 0.3)
[2021-07-01 14:56] LABS: INR 1.07 (0.9-1.15)
[2021-07-01] MEDS: MIDAZOLAM DRIP 50 mg/50mL 50 ML IV SCH ×2 (17:25→22:38)
[2021-07-01] MEDS ORDERED: POTASSIUM CHL 20MEQ/100ML 100 ML IV ONE (18:15)
[2021-07-01] MEDS: INSULIN LANTUS (GLARGINE) 1 /0.01ml (100units/ml) SC SCH (22:00)
[2021-07-01] MEDS ORDERED: PROPOFOL 100 ML IV ONE (23:47)
[2021-07-02] VITALS (100 sets, daily range): BP systolic 89–131; BP diastolic 48–72
[2021-07-02] MEDS ORDERED: PROPOFOL 100 ML IV SCH (01:45)
[2021-07-02] MEDS: FREE WATER GT SCH ×6 (02:00→22:04)
[2021-07-02] MEDS: MIDAZOLAM DRIP 50 mg/50mL 50 ML IV SCH ×2 (03:03→23:00)
[2021-07-02 05:32] LABS: Basophils # (auto) 0 10 ^3/uL (0-0.2); Basophils % (auto) 0.1 % (0.0-2.0); Eosinophils # (auto) 0 10 ^3/uL (0-0.8); Hematocrit 33.9 % (41.0-53.0); Lymphocytes # (auto) 0.3 10 ^3/uL (0.4-5.4); Mean Corpuscular Hemoglobin 29.4 pg (28.0-32.0); Mean Corpuscular Hgb Conc. 32.4 g/dL (32.0-36.0); Mean Corpuscular Volume 90.5 fL (80.0-100.0); Monocytes # (auto) 0.2 10 ^3/uL (0-1.3); Neutrophils # (auto) 7.3 10 ^3/uL (1.6-8.6); Neutrophils % (auto) 93.9 % (37.0-80.0); Red Blood Cells 3.75 10^6/uL (4.5-5.90); Red Cell Distribution Width 15.6 % (11.8-14.3); White Blood Cell 7.8 10^3/uL (4.4-10.8)
[2021-07-02 05:49] LABS: BUN/Creatinine Ratio 20.4; Calcium 7.9 mg/dL (8.5-10.1); Potassium 4.2 mmol/L (3.5-5.1)
[2021-07-02] MEDS: ACCU-CHEK COMFORT CURVE STRIP VI SCH ×3 (06:21→11:31)
[2021-07-02] MEDS: InsuLIN REG 1unit/0.01ml Soln (100units/ml) SC SCH ×5 (06:25→17:14)
[2021-07-02] MEDS: IPRATROPIUM BROM 0.5 MG/2.5ML INH SOL NEB SCH ×3 (06:45→22:07)
[2021-07-02] MEDS: BUDESONIDE (INHALATION) 0.5 MG/2 ML NEB NEB SCH ×2 (06:45→22:07)
[2021-07-02] MEDS: ALBUTEROL SULF 2.5 MG/0.5ML(0.5%) NEB SOLN NEB PRN ×3 (06:45→22:07)
[2021-07-02] MEDS: MEROPENEM 1GM IVPB 100 ML IV SCH ×2 (08:29→16:00)
[2021-07-02] MEDS: CHOLECALCIFEROL (VITD3) 2,000 UNIT CAP/TAB PO SCH (08:50)
[2021-07-02] MEDS: ASCORBIC ACID 1,000 MG TAB PO SCH (08:50)
[2021-07-02] MEDS: PANTOPRAZOLE 40 MG/10 ML VIAL INJ IV SCH ×2 (08:50→22:04)
[2021-07-02] MEDS: ZINC SULFATE 220mg CAP or TAB PO SCH (08:50)
[2021-07-02] MEDS: ENOXAPARIN SOD 40 MG/0.4 ML SYRINGE SC SCH ×2 (08:51→22:04)
[2021-07-02] MEDS: SODIUM BICARBONATE 50ML VIAL 50 ML in SOD CHL 0.45% 1,000 ML IV SCH ×3 (11:34→22:16)
[2021-07-02] MEDS: VORICONAZOLE INJ 400 MG in D5W 5% 250 ML IV SCH ×2 (11:38→22:04)
[2021-07-02] MEDS: DexAMETHasone INJECTION 10 MG in D5W 5% 50 ML IV SCH (11:38)
[2021-07-02] MEDS ORDERED: FUROSEMIDE 20 MG/2 ML VIAL IV ONE (12:15)
[2021-07-02] MEDS: fentaNYL Drip 2500mCg/250mlNS 250 ML IV SCH (20:40)
[2021-07-02] MEDS: INSULIN LANTUS (GLARGINE) 1 /0.01ml (100units/ml) SC SCH (22:05)
[2021-07-03] VITALS (104 sets, daily range): BP systolic 80–143; BP diastolic 49–81
[2021-07-03] MEDS: Glucerna 1.2 Cal 1Liter BOTTLE GT SCH
[2021-07-03] MEDS: ACCU-CHEK COMFORT CURVE STRIP VI SCH ×4 (01:22→19:41)
[2021-07-03] MEDS: InsuLIN REG 1unit/0.01ml Soln (100units/ml) SC SCH ×4 (01:23→19:41)
[2021-07-03] MEDS: MEROPENEM 1GM IVPB 100 ML IV SCH ×3 (01:25→19:39)
[2021-07-03] MEDS: FREE WATER GT SCH ×6 (01:51→19:56)
[2021-07-03] MEDS: MIDAZOLAM DRIP 50 mg/50mL 50 ML IV SCH ×3 (03:56→19:53)
[2021-07-03 05:04] LABS: Hematocrit 30.7 % (41.0-53.0); Hemoglobin 10.5 g/dL (13.5-17.5)
[2021-07-03 05:28] LABS: BUN/Creatinine Ratio 21.3; Calcium 7.5 mg/dL (8.5-10.1); Potassium 3.6 mmol/L (3.5-5.1)
[2021-07-03 05:36] LABS: CRP High Sensitivity 10.1 mg/dL (< 0.3)
[2021-07-03] MEDS: BUDESONIDE (INHALATION) 0.5 MG/2 ML NEB NEB SCH ×2 (07:12→18:55)
[2021-07-03] MEDS: IPRATROPIUM BROM 0.5 MG/2.5ML INH SOL NEB SCH ×3 (07:12→18:55)
[2021-07-03] MEDS: ALBUTEROL SULF 2.5 MG/0.5ML(0.5%) NEB SOLN NEB PRN ×3 (07:12→18:55)
[2021-07-03] MEDS ORDERED: FUROSEMIDE 20 MG/2 ML VIAL IV ONE (09:45)
[2021-07-03] MEDS: CHOLECALCIFEROL (VITD3) 2,000 UNIT CAP/TAB PO SCH (11:48)
[2021-07-03] MEDS: ASCORBIC ACID 1,000 MG TAB PO SCH (11:48)
[2021-07-03] MEDS: ZINC SULFATE 220mg CAP or TAB PO SCH (11:48)
[2021-07-03] MEDS: INSULIN LANTUS (GLARGINE) 1 /0.01ml (100units/ml) SC SCH ×2 (11:49→21:54)
[2021-07-03] MEDS: PANTOPRAZOLE 40 MG/10 ML VIAL INJ IV SCH ×2 (11:51→20:57)
[2021-07-03] MEDS: ENOXAPARIN SOD 40 MG/0.4 ML SYRINGE SC SCH ×2 (11:51→20:57)
[2021-07-03] MEDS: VORICONAZOLE INJ 400 MG in D5W 5% 250 ML IV SCH ×2 (12:00→20:49)
[2021-07-03] MEDS: DexAMETHasone INJECTION 10 MG in D5W 5% 50 ML IV SCH (12:01)
[2021-07-03] MEDS: fentaNYL Drip 2500mCg/250mlNS 250 ML IV SCH (13:52)
[2021-07-03] MEDS ORDERED: PROPOFOL 100 ML IV ONE (14:41)
[2021-07-03] MEDS: PROPOFOL 100 ML IV SCH ×2 (16:34→18:02)
[2021-07-03] MEDS ORDERED: METOCLOPRAMIDE HCL 5MG/ml INJ 2ml VIAL IV ONE (17:00)
[2021-07-04] VITALS (103 sets, daily range): BP systolic 98–123; BP diastolic 55–72
[2021-07-04] MEDS: MEROPENEM 1GM IVPB 100 ML IV SCH ×3 (00:28→14:55)
[2021-07-04] MEDS: ACCU-CHEK COMFORT CURVE STRIP VI SCH ×4 (00:28→18:00)
[2021-07-04] MEDS: InsuLIN REG 1unit/0.01ml Soln (100units/ml) SC SCH ×4 (01:21→18:40)
[2021-07-04] MEDS: FREE WATER GT SCH ×6 (02:00→19:35)
[2021-07-04] MEDS: fentaNYL Drip 2500mCg/250mlNS 250 ML IV SCH (03:02)
[2021-07-04 05:30] LABS: Basophils # (auto) 0 10 ^3/uL (0-0.2); Basophils % (auto) 0.2 % (0.0-2.0); Eosinophils # (auto) 0 10 ^3/uL (0-0.8); Hematocrit 35.4 % (41.0-53.0); Lymphocytes # (auto) 0.4 10 ^3/uL (0.4-5.4); Lymphocytes % (auto) 4.1 % (10.0-50.0); Mean Corpuscular Hemoglobin 29.5 pg (28.0-32.0); Mean Corpuscular Hgb Conc. 33.9 g/dL (32.0-36.0); Mean Corpuscular Volume 86.9 fL (80.0-100.0); Monocytes # (auto) 0.7 10 ^3/uL (0-1.3); Monocytes % (auto) 6.4 % (0.0-12.0); Neutrophils # (auto) 9.2 10 ^3/uL (1.6-8.6); Neutrophils % (auto) 89.3 % (37.0-80.0); Nucleated Red Blood Cells % 0.1 %; Red Blood Cells 4.07 10^6/uL (4.5-5.90); Red Cell Distribution Width 15.6 % (11.8-14.3); White Blood Cell 10.3 10^3/uL (4.4-10.8)
[2021-07-04] MEDS: ALBUTEROL SULF 2.5 MG/0.5ML(0.5%) NEB SOLN NEB PRN ×3 (05:45→22:35)
[2021-07-04] MEDS: BUDESONIDE (INHALATION) 0.5 MG/2 ML NEB NEB SCH ×2 (05:45→22:35)
[2021-07-04] MEDS: IPRATROPIUM BROM 0.5 MG/2.5ML INH SOL NEB SCH ×3 (05:45→22:35)
[2021-07-04 06:02] LABS: Potassium 4.6 mmol/L (3.5-5.1)
[2021-07-04 06:18] LABS: BUN/Creatinine Ratio 21.8; Calcium 7.7 mg/dL (8.5-10.1)
[2021-07-04] MEDS: PROPOFOL 100 ML IV SCH ×2 (09:16→17:29)
[2021-07-04] MEDS: PANTOPRAZOLE 40 MG/10 ML VIAL INJ IV SCH ×2 (09:16→21:54)
[2021-07-04] MEDS: ZINC SULFATE 220mg CAP or TAB PO SCH (09:16)
[2021-07-04] MEDS: CHOLECALCIFEROL (VITD3) 2,000 UNIT CAP/TAB PO SCH (09:17)
[2021-07-04] MEDS: ASCORBIC ACID 1,000 MG TAB PO SCH (09:18)
[2021-07-04] MEDS: MIDAZOLAM DRIP 50 mg/50mL 50 ML IV SCH ×2 (09:21→14:40)
[2021-07-04] MEDS ORDERED: ENOXAPARIN SOD 100 MG/1 ML SYRINGE SC ONE (10:30)
[2021-07-04] MEDS ORDERED: ENOXAPARIN SOD 120 MG/0.8 ML SYRINGE SC ONE (11:00)
[2021-07-04] MEDS: DexAMETHasone INJECTION 10 MG in D5W 5% 50 ML IV SCH (14:48)
[2021-07-04] MEDS ORDERED: METOCLOPRAMIDE HCL 5MG/ml INJ 2ml VIAL ONE (17:47)
[2021-07-04] MEDS: VORICONAZOLE INJ 400 MG in D5W 5% 250 ML IV SCH ×2 (17:53→22:00)
[2021-07-04] MEDS: INSULIN LANTUS (GLARGINE) 1 /0.01ml (100units/ml) SC SCH ×2 (18:37→22:00)
[2021-07-04] MEDS ORDERED: METOCLOPRAMIDE HCL 5MG/ml INJ 2ml VIAL IV ONE (20:15)
[2021-07-04] MEDS: ENOXAPARIN SOD 120 MG/0.8 ML SYRINGE SC SCH (21:54)
[2021-07-05] VITALS (54 sets, daily range): BP systolic 105–155; BP diastolic 55–88
[2021-07-05] MEDS: MEROPENEM 1GM IVPB 100 ML IV SCH ×4 (00:10→23:18)
[2021-07-05] MEDS: ACCU-CHEK COMFORT CURVE STRIP VI SCH ×4 (00:24→18:49)
[2021-07-05] MEDS: fentaNYL Drip 2500mCg/250mlNS 250 ML IV SCH ×2 (01:22→13:06)
[2021-07-05] MEDS: InsuLIN REG 1unit/0.01ml Soln (100units/ml) SC SCH ×4 (06:00→18:50)
[2021-07-05] MEDS: ALBUTEROL SULF 2.5 MG/0.5ML(0.5%) NEB SOLN NEB PRN ×2 (06:35→22:23)
[2021-07-05] MEDS: BUDESONIDE (INHALATION) 0.5 MG/2 ML NEB NEB SCH ×2 (06:35→22:23)
[2021-07-05] MEDS: IPRATROPIUM BROM 0.5 MG/2.5ML INH SOL NEB SCH ×3 (06:35→22:23)
[2021-07-05 07:29] LABS: Basophils # (auto) 0 10 ^3/uL (0-0.2); Basophils % (auto) 0.5 % (0.0-2.0); Eosinophils # (auto) 0 10 ^3/uL (0-0.8); Hematocrit 30.4 % (41.0-53.0); Hemoglobin 10.3 g/dL (13.5-17.5); Lymphocytes # (auto) 0.3 10 ^3/uL (0.4-5.4); Lymphocytes % (auto) 3.2 % (10.0-50.0); Mean Corpuscular Hemoglobin 29.3 pg (28.0-32.0); Mean Corpuscular Hgb Conc. 33.8 g/dL (32.0-36.0); Mean Corpuscular Volume 86.9 fL (80.0-100.0); Monocytes # (auto) 0.4 10 ^3/uL (0-1.3); Monocytes % (auto) 4.3 % (0.0-12.0); Neutrophils # (auto) 8.4 10 ^3/uL (1.6-8.6); White Blood Cell 9.1 10^3/uL (4.4-10.8)
[2021-07-05 07:46] LABS: BUN/Creatinine Ratio 21.6; Calcium 7.9 mg/dL (8.5-10.1); Potassium 3.6 mmol/L (3.5-5.1)
[2021-07-05] MEDS: PANTOPRAZOLE 40 MG/10 ML VIAL INJ IV SCH ×2 (09:28→20:33)
[2021-07-05] MEDS: CHOLECALCIFEROL (VITD3) 2,000 UNIT CAP/TAB PO SCH (09:29)
[2021-07-05] MEDS: ASCORBIC ACID 1,000 MG TAB PO SCH (09:29)
[2021-07-05] MEDS: ENOXAPARIN SOD 120 MG/0.8 ML SYRINGE SC SCH ×2 (09:29→20:33)
[2021-07-05] MEDS: ZINC SULFATE 220mg CAP or TAB PO SCH (09:29)
[2021-07-05] MEDS: PROPOFOL 100 ML IV SCH ×2 (09:30→15:03)
[2021-07-05] MEDS: VORICONAZOLE INJ 400 MG in D5W 5% 250 ML IV SCH ×2 (10:00→19:53)
[2021-07-05] MEDS ORDERED: TPN PER PHARMACY 0 ML IV SCH (11:45)
[2021-07-05] MEDS ORDERED: POTASSIUM CHL 20MEQ/100ML 100 ML IV ONE (11:45)
[2021-07-05] MEDS ORDERED: FUROSEMIDE 40 MG/4 ML VIAL IV ONE (11:45)
[2021-07-05 12:12] LABS: Albumin 1.5 g/dL (3.4-5.0)
[2021-07-05 12:19] LABS: Bilirubin, Direct 0.1 mg/dL (0-0.2); Bilirubin, Total 0.3 mg/dL (0.2-1.0); Pre Albumin 18.1 mg/dL (20.0-40.0); Total Protein 5.8 g/dL (6.4-8.2)
[2021-07-05] MEDS: DexAMETHasone INJECTION 10 MG in D5W 5% 50 ML IV SCH (13:01)
[2021-07-05] MEDS: METOCLOPRAMIDE HCL 5MG/ml INJ 2ml VIAL IV SCH ×2 (15:07→18:51)
[2021-07-05] MEDS: INSULIN LANTUS (GLARGINE) 1 /0.01ml (100units/ml) SC SCH ×2 (15:11→20:33)
[2021-07-05 15:31] LABS: INR 1.04 (0.9-1.15); Partial Thromboplastin Time 32.5 sec (23.6-33.0)
[2021-07-05] MEDS: TPN PER PHARMACY IV NR ×7 (19:37)
[2021-07-06] VITALS (102 sets, daily range): BP systolic 106–152; BP diastolic 64–106
[2021-07-06] MEDS: METOCLOPRAMIDE HCL 5MG/ml INJ 2ml VIAL IV SCH ×4 (00:14→18:05)
[2021-07-06] MEDS: ACCU-CHEK COMFORT CURVE STRIP VI SCH ×4 (00:14→18:07)
[2021-07-06] MEDS: PROPOFOL 100 ML IV SCH ×4 (01:35→20:12)
[2021-07-06] MEDS: MIDAZOLAM DRIP 50 mg/50mL 50 ML IV SCH ×3 (01:35→19:00)
[2021-07-06] MEDS: InsuLIN REG 1unit/0.01ml Soln (100units/ml) SC SCH ×4 (06:00→18:07)
[2021-07-06] MEDS: IPRATROPIUM BROM 0.5 MG/2.5ML INH SOL NEB SCH ×3 (07:05→18:41)
[2021-07-06] MEDS: BUDESONIDE (INHALATION) 0.5 MG/2 ML NEB NEB SCH ×2 (07:05→18:41)
[2021-07-06 07:53] LABS: Basophils # (auto) 0 10 ^3/uL (0-0.2); Eosinophils # (auto) 0 10 ^3/uL (0-0.8); Hematocrit 30.2 % (41.0-53.0); Hemoglobin 10.3 g/dL (13.5-17.5); Lymphocytes # (auto) 0.4 10 ^3/uL (0.4-5.4); Lymphocytes % (auto) 3.7 % (10.0-50.0); Mean Corpuscular Hemoglobin 29.5 pg (28.0-32.0); Mean Corpuscular Hgb Conc. 34.1 g/dL (32.0-36.0); Mean Corpuscular Volume 86.5 fL (80.0-100.0); Monocytes # (auto) 0.6 10 ^3/uL (0-1.3); Monocytes % (auto) 5.7 % (0.0-12.0); Neutrophils # (auto) 9.7 10 ^3/uL (1.6-8.6); Neutrophils % (auto) 90.6 % (37.0-80.0); Red Blood Cells 3.49 10^6/uL (4.5-5.90); Red Cell Distribution Width 15.3 % (11.8-14.3); White Blood Cell 10.7 10^3/uL (4.4-10.8)
[2021-07-06 08:16] LABS: INR 1.08 (0.9-1.15)
[2021-07-06 08:17] LABS: Albumin 1.5 g/dL (3.4-5.0); Calcium 7.9 mg/dL (8.5-10.1); Magnesium 2.9 mg/dL (1.6-2.6); Potassium 3.6 mmol/L (3.5-5.1)
[2021-07-06 08:26] LABS: BUN/Creatinine Ratio 27.3; Bilirubin, Total 0.4 mg/dL (0.2-1.0); CRP High Sensitivity 3.61 mg/dL (< 0.3); Phosphorus 3.4 mg/dL (2.5-4.90); Total Protein 5.9 g/dL (6.4-8.2)
[2021-07-06] MEDS: MEROPENEM 1GM IVPB 100 ML IV SCH ×2 (09:37→16:19)
[2021-07-06] MEDS: CHOLECALCIFEROL (VITD3) 2,000 UNIT CAP/TAB PO SCH (09:38)
[2021-07-06] MEDS: ASCORBIC ACID 1,000 MG TAB PO SCH (09:38)
[2021-07-06] MEDS: Glucerna 1.2 Cal 1Liter BOTTLE GT SCH (09:40)
[2021-07-06] MEDS: PANTOPRAZOLE 40 MG/10 ML VIAL INJ IV SCH ×2 (09:41→20:19)
[2021-07-06] MEDS: ZINC SULFATE 220mg CAP or TAB PO SCH (09:41)
[2021-07-06] MEDS: DexAMETHasone INJECTION 10 MG in D5W 5% 50 ML IV SCH (09:42)
[2021-07-06] MEDS ORDERED: POTASSIUM CHL 20MEQ/100ML 100 ML IV ONE (12:15)
[2021-07-06] MEDS ORDERED: FUROSEMIDE 40 MG/4 ML VIAL IV ONE (12:15)
[2021-07-06] MEDS: fentaNYL Drip 2500mCg/250mlNS 250 ML IV SCH (13:03)
[2021-07-06] MEDS: ENOXAPARIN SOD 120 MG/0.8 ML SYRINGE SC SCH ×2 (13:08→20:19)
[2021-07-06] MEDS: VORICONAZOLE INJ 400 MG in D5W 5% 250 ML IV SCH ×2 (13:09→20:13)
[2021-07-06] MEDS: INSULIN LANTUS (GLARGINE) 1 /0.01ml (100units/ml) SC SCH ×2 (16:17→21:41)
[2021-07-06] MEDS ORDERED: LIDOCAINE 1% (LOCAL ANESTH.) PF 5ml SDV ID ONE (17:00)
[2021-07-06] MEDS: ALBUTEROL SULF 2.5 MG/0.5ML(0.5%) NEB SOLN NEB PRN (18:41)
[2021-07-06] MEDS: TPN PER PHARMACY IV NR ×15 (19:34→20:18)
[2021-07-06] MEDS: SODIUM CHLOR 0.9% PF (SALINE LOCK) 10ML VIAL/SYR IV SCH (20:19)
[2021-07-07] VITALS (101 sets, daily range): BP systolic 110–147; BP diastolic 66–96
[2021-07-07] MEDS: METOCLOPRAMIDE HCL 5MG/ml INJ 2ml VIAL IV SCH ×4 (00:21→17:52)
[2021-07-07] MEDS: MEROPENEM 1GM IVPB 100 ML IV SCH ×3 (00:21→16:09)
[2021-07-07 04:58] LABS: Hemoglobin 10.2 g/dL (13.5-17.5)
[2021-07-07 05:14] LABS: Albumin 1.5 g/dL (3.4-5.0); Calcium 7.8 mg/dL (8.5-10.1); Magnesium 2.7 mg/dL (1.6-2.6); Potassium 3.9 mmol/L (3.5-5.1)
[2021-07-07 05:16] LABS: BUN/Creatinine Ratio 36.3; Bilirubin, Total 0.6 mg/dL (0.2-1.0); Phosphorus 2.3 mg/dL (2.5-4.90); Total Protein 5.5 g/dL (6.4-8.2)
[2021-07-07] MEDS: InsuLIN REG 1unit/0.01ml Soln (100units/ml) SC SCH ×4 (06:00→17:39)
[2021-07-07] MEDS: ACCU-CHEK COMFORT CURVE STRIP VI SCH ×4 (06:00→17:37)
[2021-07-07] MEDS: IPRATROPIUM BROM 0.5 MG/2.5ML INH SOL NEB SCH ×3 (06:07→22:00)
[2021-07-07] MEDS: BUDESONIDE (INHALATION) 0.5 MG/2 ML NEB NEB SCH ×2 (06:07→22:00)
[2021-07-07] MEDS: ALBUTEROL SULF 2.5 MG/0.5ML(0.5%) NEB SOLN NEB PRN ×2 (06:07→13:08)
[2021-07-07] MEDS: TPN PER PHARMACY IV NR ×16 (08:10→20:00)
[2021-07-07] MEDS: DexAMETHasone SOD PHOS 10MG/1ML VIAL INJ IV SCH (10:20)
[2021-07-07] MEDS: ENOXAPARIN SOD 120 MG/0.8 ML SYRINGE SC SCH ×2 (10:20→21:26)
[2021-07-07] MEDS: PANTOPRAZOLE 40 MG/10 ML VIAL INJ IV SCH ×2 (10:20→21:24)
[2021-07-07] MEDS: ASCORBIC ACID 1,000 MG TAB PO SCH (10:20)
[2021-07-07] MEDS: ZINC SULFATE 220mg CAP or TAB PO SCH (10:20)
[2021-07-07] MEDS: CHOLECALCIFEROL (VITD3) 2,000 UNIT CAP/TAB PO SCH (10:20)
[2021-07-07] MEDS: VORICONAZOLE INJ 400 MG in D5W 5% 250 ML IV SCH ×2 (10:21→21:24)
[2021-07-07] MEDS: INSULIN LANTUS (GLARGINE) 1 /0.01ml (100units/ml) SC SCH ×2 (10:24→21:25)
[2021-07-07] MEDS: SODIUM CHLOR 0.9% PF (SALINE LOCK) 10ML VIAL/SYR IV SCH ×2 (10:24→21:24)
[2021-07-07] MEDS ORDERED: LACTULOSE 20Gm/30ML SOLN PO PRN (10:45)
[2021-07-07] MEDS ORDERED: FUROSEMIDE 40 MG/4 ML VIAL IV ONE (10:45)
[2021-07-07] MEDS ORDERED: POTASSIUM CHL 20MEQ/100ML 100 ML IV ONE (10:45)
[2021-07-07] MEDS ORDERED: POTASSIUM PHOSP 22MEQ(15MMOLE) in NS 100 ML IV ONE (12:00)
[2021-07-07] MEDS: MIDAZOLAM DRIP 50 mg/50mL 50 ML IV SCH ×4 (12:24→20:02)
[2021-07-07] MEDS: fentaNYL Drip 2500mCg/250mlNS 250 ML IV SCH ×2 (12:34→22:50)
[2021-07-07] MEDS: DOCUSATE SOD 100 MG CAP PO SCH (21:25)
[2021-07-08] VITALS (101 sets, daily range): BP systolic 116–156; BP diastolic 68–95
[2021-07-08] MEDS: InsuLIN REG 1unit/0.01ml Soln (100units/ml) SC SCH ×5 (00:56→23:54)
[2021-07-08] MEDS: ACCU-CHEK COMFORT CURVE STRIP VI SCH ×5 (00:56→23:53)
[2021-07-08] MEDS: MIDAZOLAM DRIP 50 mg/50mL 50 ML IV SCH ×6 (01:00→22:06)
[2021-07-08 06:07] LABS: Hemoglobin 10.2 g/dL (13.5-17.5); Mean Corpuscular Hemoglobin 29.3 pg (28.0-32.0); Mean Corpuscular Hgb Conc. 33.9 g/dL (32.0-36.0); Mean Corpuscular Volume 86.6 fL (80.0-100.0); Red Blood Cells 3.47 10^6/uL (4.5-5.90); Red Cell Distribution Width 15.1 % (11.8-14.3); White Blood Cell 8.1 10^3/uL (4.4-10.8)
[2021-07-08 06:24] LABS: Potassium 4.3 mmol/L (3.5-5.1)
[2021-07-08 06:26] LABS: INR 1.1 (0.9-1.15)
[2021-07-08] MEDS: METOCLOPRAMIDE HCL 5MG/ml INJ 2ml VIAL IV SCH ×5 (06:26→23:53)
[2021-07-08 06:31] LABS: Albumin 1.4 g/dL (3.4-5.0); Basophils % (manual) 0 (0.0-2.0); Blast Cells 0; Calcium 7.1 mg/dL (8.5-10.1); Eosinophils % (manual) 0 (0-7); Magnesium 2.4 mg/dL (1.6-2.6); Metamyelocytes % 0; Myelocytes % 0; Promyelocytes % 0; Reactive Lymphocytes 0
[2021-07-08 06:33] LABS: Bilirubin, Total 0.5 mg/dL (0.2-1.0); Phosphorus 3.6 mg/dL (2.5-4.90); Total Protein 5.3 g/dL (6.4-8.2)
[2021-07-08] MEDS: MEROPENEM 1GM IVPB 100 ML IV SCH ×4 (08:10→23:53)
[2021-07-08] MEDS: IPRATROPIUM BROM 0.5 MG/2.5ML INH SOL NEB SCH ×3 (09:18→18:48)
[2021-07-08 09:34] LABS: Band Neutrophils % (manual) 3; Lymphocytes % (manual) 13 (10.0-50.0); Monocytes % (manual) 7 (0-12)
[2021-07-08] MEDS: CHOLECALCIFEROL (VITD3) 2,000 UNIT CAP/TAB PO SCH (09:41)
[2021-07-08] MEDS: ASCORBIC ACID 1,000 MG TAB PO SCH (09:41)
[2021-07-08] MEDS: ZINC SULFATE 220mg CAP or TAB PO SCH (09:42)
[2021-07-08] MEDS: FLORASTOR (S. BOULARDII) 250 MG CAP PO SCH (09:42)
[2021-07-08] MEDS: ENOXAPARIN SOD 120 MG/0.8 ML SYRINGE SC SCH ×2 (09:42→22:06)
[2021-07-08] MEDS: DexAMETHasone SOD PHOS 10MG/1ML VIAL INJ IV SCH (09:42)
[2021-07-08] MEDS: PANTOPRAZOLE 40 MG/10 ML VIAL INJ IV SCH ×2 (09:42→22:05)
[2021-07-08] MEDS: SODIUM CHLOR 0.9% PF (SALINE LOCK) 10ML VIAL/SYR IV SCH ×2 (09:43→22:05)
[2021-07-08] MEDS: INSULIN LANTUS (GLARGINE) 1 /0.01ml (100units/ml) SC SCH ×2 (10:00→22:07)
[2021-07-08] MEDS: DOCUSATE SOD 100 MG CAP PO SCH ×2 (10:00→22:05)
[2021-07-08] MEDS: VORICONAZOLE INJ 400 MG in D5W 5% 250 ML IV SCH ×2 (11:07→22:05)
[2021-07-08] MEDS: fentaNYL Drip 2500mCg/250mlNS 250 ML IV SCH ×2 (11:08→22:07)
[2021-07-08] MEDS: PROPOFOL 100 ML IV SCH (14:27)
[2021-07-08] MEDS: BUDESONIDE (INHALATION) 0.5 MG/2 ML NEB NEB SCH ×2 (14:42→18:48)
[2021-07-08] MEDS: ALBUTEROL SULF 2.5 MG/0.5ML(0.5%) NEB SOLN NEB PRN (18:48)
[2021-07-08] MEDS: TPN PER PHARMACY IV NR ×18 (19:53→20:30)
[2021-07-09] VITALS (96 sets, daily range): BP systolic 120–160; BP diastolic 70–92
[2021-07-09] MEDS: MIDAZOLAM DRIP 50 mg/50mL 50 ML IV SCH ×4 (02:33→17:16)
[2021-07-09] MEDS: ACCU-CHEK COMFORT CURVE STRIP VI SCH ×4 (06:34→23:49)
[2021-07-09] MEDS: METOCLOPRAMIDE HCL 5MG/ml INJ 2ml VIAL IV SCH ×4 (06:35→23:48)
[2021-07-09] MEDS: InsuLIN REG 1unit/0.01ml Soln (100units/ml) SC SCH ×4 (06:35→23:49)
[2021-07-09 06:52] LABS: Potassium 4.4 mmol/L (3.5-5.1)
[2021-07-09] MEDS: BUDESONIDE (INHALATION) 0.5 MG/2 ML NEB NEB SCH ×2 (06:55→18:52)
[2021-07-09] MEDS: IPRATROPIUM BROM 0.5 MG/2.5ML INH SOL NEB SCH ×3 (06:55→18:53)
[2021-07-09 06:57] LABS: Albumin 1.4 g/dL (3.4-5.0); BUN/Creatinine Ratio 51.8; Calcium 7.5 mg/dL (8.5-10.1); Magnesium 2.2 mg/dL (1.6-2.6)
[2021-07-09 07:00] LABS: Bilirubin, Total 0.5 mg/dL (0.2-1.0); Phosphorus 3.6 mg/dL (2.5-4.90); Total Protein 5.2 g/dL (6.4-8.2)
[2021-07-09] MEDS: MEROPENEM 1GM IVPB 100 ML IV SCH ×3 (08:12→23:48)
[2021-07-09] MEDS: DOCUSATE SOD 100 MG CAP PO SCH ×2 (10:00→21:55)
[2021-07-09] MEDS: SODIUM CHLOR 0.9% PF (SALINE LOCK) 10ML VIAL/SYR IV SCH ×2 (10:00→21:54)
[2021-07-09] MEDS: PANTOPRAZOLE 40 MG/10 ML VIAL INJ IV SCH ×2 (10:30→21:54)
[2021-07-09] MEDS: ASCORBIC ACID 1,000 MG TAB PO SCH (10:30)
[2021-07-09] MEDS: DexAMETHasone SOD PHOS 10MG/1ML VIAL INJ IV SCH (10:30)
[2021-07-09] MEDS: ZINC SULFATE 220mg CAP or TAB PO SCH (10:30)
[2021-07-09] MEDS: FLORASTOR (S. BOULARDII) 250 MG CAP PO SCH (10:30)
[2021-07-09] MEDS: ENOXAPARIN SOD 120 MG/0.8 ML SYRINGE SC SCH ×2 (10:31→21:55)
[2021-07-09] MEDS: CHOLECALCIFEROL (VITD3) 2,000 UNIT CAP/TAB PO SCH (10:31)
[2021-07-09] MEDS: fentaNYL Drip 2500mCg/250mlNS 250 ML IV SCH (11:23)
[2021-07-09] MEDS: INSULIN LANTUS (GLARGINE) 1 /0.01ml (100units/ml) SC SCH ×2 (11:29→22:00)
[2021-07-09] MEDS: VORICONAZOLE INJ 400 MG in D5W 5% 250 ML IV SCH ×2 (11:54→21:54)
[2021-07-09] MEDS: PROPOFOL 100 ML IV SCH (14:45)
[2021-07-09] MEDS: ALBUTEROL SULF 2.5 MG/0.5ML(0.5%) NEB SOLN NEB PRN (18:52)
[2021-07-09] MEDS: TPN PER PHARMACY IV NR ×22 (19:51→20:00)
[2021-07-10] VITALS (97 sets, daily range): BP systolic 111–167; BP diastolic 68–91
[2021-07-10] MEDS: PROPOFOL 100 ML IV SCH (02:00)
[2021-07-10] MEDS: ACCU-CHEK COMFORT CURVE STRIP VI SCH ×4 (05:13→23:50)
[2021-07-10] MEDS: METOCLOPRAMIDE HCL 5MG/ml INJ 2ml VIAL IV SCH ×4 (05:13→23:56)
[2021-07-10] MEDS: InsuLIN REG 1unit/0.01ml Soln (100units/ml) SC SCH ×4 (05:14→23:55)
[2021-07-10 05:17] LABS: Hematocrit 30.7 % (41.0-53.0); Hemoglobin 10.3 g/dL (13.5-17.5); Mean Corpuscular Hemoglobin 29.1 pg (28.0-32.0); Mean Corpuscular Hgb Conc. 33.5 g/dL (32.0-36.0); Mean Corpuscular Volume 86.9 fL (80.0-100.0); Red Blood Cells 3.53 10^6/uL (4.5-5.90); Red Cell Distribution Width 14.8 % (11.8-14.3); White Blood Cell 9.9 10^3/uL (4.4-10.8)
[2021-07-10 05:33] LABS: Basophils % (manual) 0 (0.0-2.0); Blast Cells 0; Eosinophils % (manual) 0 (0-7); Promyelocytes % 0; Reactive Lymphocytes 0
[2021-07-10 05:48] LABS: Albumin 1.3 g/dL (3.4-5.0); BUN/Creatinine Ratio 50.9; Calcium 7.9 mg/dL (8.5-10.1); Magnesium 2.1 mg/dL (1.6-2.6); Potassium 4.6 mmol/L (3.5-5.1)
[2021-07-10 05:53] LABS: Bilirubin, Total 0.4 mg/dL (0.2-1.0); Phosphorus 3.4 mg/dL (2.5-4.90); Pre Albumin 28.6 mg/dL (20.0-40.0); Total Protein 5.1 g/dL (6.4-8.2)
[2021-07-10] MEDS: IPRATROPIUM BROM 0.5 MG/2.5ML INH SOL NEB SCH ×3 (05:54→18:16)
[2021-07-10] MEDS: BUDESONIDE (INHALATION) 0.5 MG/2 ML NEB NEB SCH ×2 (05:54→18:15)
[2021-07-10] MEDS: ALBUTEROL SULF 2.5 MG/0.5ML(0.5%) NEB SOLN NEB PRN ×2 (05:54→18:15)
[2021-07-10 06:50] LABS: Band Neutrophils % (manual) 25; Lymphocytes % (manual) 6 (10.0-50.0); Metamyelocytes % 1; Monocytes % (manual) 9 (0-12); Myelocytes % 2
[2021-07-10] MEDS: MEROPENEM 1GM IVPB 100 ML IV SCH ×3 (08:16→23:50)
[2021-07-10] MEDS: ASCORBIC ACID 1,000 MG TAB PO SCH (10:27)
[2021-07-10] MEDS: DexAMETHasone SOD PHOS 10MG/1ML VIAL INJ IV SCH (10:27)
[2021-07-10] MEDS: FLORASTOR (S. BOULARDII) 250 MG CAP PO SCH (10:27)
[2021-07-10] MEDS: DOCUSATE SOD 100 MG CAP PO SCH ×2 (10:27→21:16)
[2021-07-10] MEDS: PANTOPRAZOLE 40 MG/10 ML VIAL INJ IV SCH ×2 (10:27→21:16)
[2021-07-10] MEDS: ZINC SULFATE 220mg CAP or TAB PO SCH (10:27)
[2021-07-10] MEDS: SODIUM CHLOR 0.9% PF (SALINE LOCK) 10ML VIAL/SYR IV SCH ×2 (10:27→21:16)
[2021-07-10] MEDS: CHOLECALCIFEROL (VITD3) 2,000 UNIT CAP/TAB PO SCH (10:27)
[2021-07-10] MEDS: ENOXAPARIN SOD 120 MG/0.8 ML SYRINGE SC SCH ×2 (10:28→19:18)
[2021-07-10] MEDS: INSULIN LANTUS (GLARGINE) 1 /0.01ml (100units/ml) SC SCH ×2 (10:28→21:29)
[2021-07-10] MEDS: VORICONAZOLE INJ 400 MG in D5W 5% 250 ML IV SCH ×2 (10:32→21:16)
[2021-07-10] MEDS: fentaNYL Drip 2500mCg/250mlNS 250 ML IV SCH (18:00)
[2021-07-10] MEDS: TPN PER PHARMACY IV NR ×12 (19:19)
[2021-07-10] MEDS ORDERED: TPN PER PHARMACY IV NR ×8 (20:00)
[2021-07-11] VITALS (97 sets, daily range): BP systolic 109–130; BP diastolic 65–82
[2021-07-11 05:05] LABS: Hematocrit 30.3 % (41.0-53.0); Hemoglobin 10.1 g/dL (13.5-17.5); Mean Corpuscular Hgb Conc. 33.3 g/dL (32.0-36.0); Mean Corpuscular Volume 87.2 fL (80.0-100.0); Red Blood Cells 3.48 10^6/uL (4.5-5.90); Red Cell Distribution Width 14.8 % (11.8-14.3); White Blood Cell 12.1 10^3/uL (4.4-10.8)
[2021-07-11 05:08] LABS: Basophils % (manual) 0 (0.0-2.0); Blast Cells 0; Eosinophils % (manual) 0 (0-7); Metamyelocytes % 0; Promyelocytes % 0; Reactive Lymphocytes 0
[2021-07-11 05:15] LABS: INR 1.06 (0.9-1.15); Partial Thromboplastin Time 30.9 sec (23.6-33.0)
[2021-07-11 05:16] LABS: Albumin 1.3 g/dL (3.4-5.0); BUN/Creatinine Ratio 48.6; Calcium 7.6 mg/dL (8.5-10.1); Magnesium 2.2 mg/dL (1.6-2.6); Potassium 4.3 mmol/L (3.5-5.1)
[2021-07-11 05:19] LABS: Bilirubin, Total 0.5 mg/dL (0.2-1.0); Phosphorus 3.3 mg/dL (2.5-4.90); Total Protein 5.2 g/dL (6.4-8.2)
[2021-07-11] MEDS: METOCLOPRAMIDE HCL 5MG/ml INJ 2ml VIAL IV SCH ×4 (05:41→23:56)
[2021-07-11] MEDS: ACCU-CHEK COMFORT CURVE STRIP VI SCH ×3 (06:00→17:35)
[2021-07-11] MEDS: InsuLIN REG 1unit/0.01ml Soln (100units/ml) SC SCH ×3 (06:00→17:35)
[2021-07-11] MEDS: IPRATROPIUM BROM 0.5 MG/2.5ML INH SOL NEB SCH ×3 (06:23→19:06)
[2021-07-11] MEDS: ALBUTEROL SULF 2.5 MG/0.5ML(0.5%) NEB SOLN NEB PRN ×3 (06:23→19:06)
[2021-07-11] MEDS: BUDESONIDE (INHALATION) 0.5 MG/2 ML NEB NEB SCH ×2 (06:23→19:06)
[2021-07-11 06:55] LABS: Band Neutrophils % (manual) 25; Lymphocytes % (manual) 4 (10.0-50.0); Monocytes % (manual) 13 (0-12); Myelocytes % 1
[2021-07-11] MEDS: MEROPENEM 1GM IVPB 100 ML IV SCH ×3 (08:18→23:56)
[2021-07-11] MEDS: PANTOPRAZOLE 40 MG/10 ML VIAL INJ IV SCH ×2 (09:59→21:56)
[2021-07-11] MEDS: ASCORBIC ACID 1,000 MG TAB PO SCH (10:00)
[2021-07-11] MEDS: FLORASTOR (S. BOULARDII) 250 MG CAP PO SCH (10:00)
[2021-07-11] MEDS: DOCUSATE SOD 100 MG CAP PO SCH ×2 (10:00→21:57)
[2021-07-11] MEDS: ZINC SULFATE 220mg CAP or TAB PO SCH (10:00)
[2021-07-11] MEDS: CHOLECALCIFEROL (VITD3) 2,000 UNIT CAP/TAB PO SCH (10:01)
[2021-07-11] MEDS: ENOXAPARIN SOD 120 MG/0.8 ML SYRINGE SC SCH ×2 (10:01→21:50)
[2021-07-11] MEDS: INSULIN LANTUS (GLARGINE) 1 /0.01ml (100units/ml) SC SCH ×2 (10:15→22:11)
[2021-07-11] MEDS: SODIUM CHLOR 0.9% PF (SALINE LOCK) 10ML VIAL/SYR IV SCH ×2 (10:15→21:56)
[2021-07-11] MEDS: fentaNYL Drip 2500mCg/250mlNS 250 ML IV SCH (10:16)
[2021-07-11] MEDS: VORICONAZOLE INJ 400 MG in D5W 5% 250 ML IV SCH ×2 (12:32→21:56)
[2021-07-11] MEDS: MIDAZOLAM DRIP 50 mg/50mL 50 ML IV SCH (14:49)
[2021-07-11] MEDS: PROPOFOL 100 ML IV SCH (14:49)
[2021-07-11] MEDS ORDERED: ROCURONIUM 10MG/ML 10ML VIAL IV ONE ×2 (15:00→15:12)
[2021-07-11] MEDS ORDERED: TPN PER PHARMACY IV NR ×8 (20:00)
[2021-07-12] VITALS (88 sets, daily range): BP systolic 84–122; BP diastolic 45–77
[2021-07-12 02:45] LABS: Hematocrit 29.9 % (41.0-53.0); Mean Corpuscular Hemoglobin 29.2 pg (28.0-32.0); Mean Corpuscular Hgb Conc. 33.4 g/dL (32.0-36.0); Mean Corpuscular Volume 87.5 fL (80.0-100.0); Red Blood Cells 3.41 10^6/uL (4.5-5.90); Red Cell Distribution Width 15.3 % (11.8-14.3); White Blood Cell 14.1 10^3/uL (4.4-10.8)
[2021-07-12 02:49] LABS: Basophils % (manual) 0 (0.0-2.0); Eosinophils % (manual) 0 (0-7); Metamyelocytes % 0; Myelocytes % 0; Promyelocytes % 0
[2021-07-12 02:50] LABS: Blast Cells 0; Reactive Lymphocytes 0
[2021-07-12 03:04] LABS: Albumin 1.1 g/dL (3.4-5.0); Calcium 7.5 mg/dL (8.5-10.1); Magnesium 2.1 mg/dL (1.6-2.6); Potassium 4.3 mmol/L (3.5-5.1)
[2021-07-12 03:06] LABS: BUN/Creatinine Ratio 53.9; Phosphorus 3.2 mg/dL (2.5-4.90)
[2021-07-12 03:08] LABS: INR 1.05 (0.9-1.15)
[2021-07-12 03:09] LABS: Bilirubin, Total 0.5 mg/dL (0.2-1.0); Total Protein 5.1 g/dL (6.4-8.2)
[2021-07-12 04:04] LABS: Band Neutrophils % (manual) 31; Lymphocytes % (manual) 3 (10.0-50.0); Monocytes % (manual) 7 (0-12)
[2021-07-12] MEDS: InsuLIN REG 1unit/0.01ml Soln (100units/ml) SC SCH ×5 (05:47→23:34)
[2021-07-12] MEDS: ACCU-CHEK COMFORT CURVE STRIP VI SCH ×5 (05:47→23:24)
[2021-07-12] MEDS: METOCLOPRAMIDE HCL 5MG/ml INJ 2ml VIAL IV SCH ×4 (05:49→23:24)
[2021-07-12] MEDS: ALBUTEROL SULF 2.5 MG/0.5ML(0.5%) NEB SOLN NEB PRN ×3 (06:24→22:24)
[2021-07-12] MEDS: IPRATROPIUM BROM 0.5 MG/2.5ML INH SOL NEB SCH ×3 (06:24→22:24)
[2021-07-12] MEDS: BUDESONIDE (INHALATION) 0.5 MG/2 ML NEB NEB SCH ×2 (06:24→22:24)
[2021-07-12] MEDS: MEROPENEM 1GM IVPB 100 ML IV SCH (08:24)
[2021-07-12] MEDS: PANTOPRAZOLE 40 MG/10 ML VIAL INJ IV SCH ×2 (09:56→21:48)
[2021-07-12] MEDS: ZINC SULFATE 220mg CAP or TAB PO SCH (09:56)
[2021-07-12] MEDS: DOCUSATE SOD 100 MG CAP PO SCH ×2 (09:57→20:05)
[2021-07-12] MEDS: FLORASTOR (S. BOULARDII) 250 MG CAP PO SCH (09:57)
[2021-07-12] MEDS: CHOLECALCIFEROL (VITD3) 2,000 UNIT CAP/TAB PO SCH (09:57)
[2021-07-12] MEDS: ASCORBIC ACID 1,000 MG TAB PO SCH (09:57)
[2021-07-12] MEDS: ENOXAPARIN SOD 120 MG/0.8 ML SYRINGE SC SCH ×2 (09:58→21:48)
[2021-07-12] MEDS: INSULIN LANTUS (GLARGINE) 1 /0.01ml (100units/ml) SC SCH ×2 (09:58→22:12)
[2021-07-12] MEDS: SODIUM CHLOR 0.9% PF (SALINE LOCK) 10ML VIAL/SYR IV SCH ×2 (10:00→21:48)
[2021-07-12] MEDS: VORICONAZOLE INJ 400 MG in D5W 5% 250 ML IV SCH ×2 (10:00→21:48)
[2021-07-12] MEDS ORDERED: BUPIVACAINE W/ EPINEPH 0.25% INJ 50ML MDV ONE (10:54)
[2021-07-12] MEDS ORDERED: fentaNYL CITRATE 100 MCG/2 ML VL ONE (11:48)
[2021-07-12] MEDS: fentaNYL Drip 2500mCg/250mlNS 250 ML IV SCH (11:57)
[2021-07-12] MEDS: MIDAZOLAM DRIP 50 mg/50mL 50 ML IV SCH ×2 (13:40→19:39)
[2021-07-12] MEDS: PROPOFOL 100 ML IV SCH ×2 (15:01→21:40)
[2021-07-12] MEDS ORDERED: TPN PER PHARMACY IV NR ×8 (20:00)
[2021-07-12] MEDS: DOCUSATE ORAL LIQUID 100 MG/10 ML UD GT SCH (21:40)
[2021-07-13] VITALS (101 sets, daily range): BP systolic 76–122; BP diastolic 40–74
[2021-07-13] MEDS: PROPOFOL 100 ML IV SCH (05:30)
[2021-07-13] MEDS: METOCLOPRAMIDE HCL 5MG/ml INJ 2ml VIAL IV SCH ×4 (05:30→23:57)
[2021-07-13] MEDS: ACCU-CHEK COMFORT CURVE STRIP VI SCH ×3 (05:31→23:57)
[2021-07-13] MEDS: ACETAMINOPHEN 650 MG RECT SUPP PR PRN (05:53)
[2021-07-13] MEDS: InsuLIN REG 1unit/0.01ml Soln (100units/ml) SC SCH ×3 (06:00→23:57)
[2021-07-13] MEDS: IPRATROPIUM BROM 0.5 MG/2.5ML INH SOL NEB SCH ×3 (06:07→22:05)
[2021-07-13] MEDS: ALBUTEROL SULF 2.5 MG/0.5ML(0.5%) NEB SOLN NEB PRN ×3 (06:07→22:05)
[2021-07-13] MEDS: BUDESONIDE (INHALATION) 0.5 MG/2 ML NEB NEB SCH ×2 (06:07→22:05)
[2021-07-13] MEDS: INSULIN LANTUS (GLARGINE) 1 /0.01ml (100units/ml) SC SCH ×2 (10:00→21:17)
[2021-07-13] MEDS: SODIUM CHLOR 0.9% PF (SALINE LOCK) 10ML VIAL/SYR IV SCH ×2 (10:00→21:16)
[2021-07-13 10:05] LABS: Hematocrit 33.4 % (41.0-53.0); Hemoglobin 10.7 g/dL (13.5-17.5); Mean Corpuscular Hemoglobin 28.4 pg (28.0-32.0); Mean Corpuscular Volume 88.8 fL (80.0-100.0); Red Blood Cells 3.76 10^6/uL (4.5-5.90); Red Cell Distribution Width 16.1 % (11.8-14.3); White Blood Cell 18.3 10^3/uL (4.4-10.8)
[2021-07-13 10:27] LABS: Basophils % (manual) 0 (0.0-2.0); Blast Cells 0; Myelocytes % 0; Promyelocytes % 0; Reactive Lymphocytes 0
[2021-07-13 10:32] LABS: Potassium 4.5 mmol/L (3.5-5.1)
[2021-07-13 10:42] LABS: BUN/Creatinine Ratio 43.4; Bilirubin, Total 0.5 mg/dL (0.2-1.0); Calcium 7.7 mg/dL (8.5-10.1); Magnesium 2.3 mg/dL (1.6-2.6); Total Protein 5.7 g/dL (6.4-8.2)
[2021-07-13] MEDS ORDERED: ACETAMINOPHEN 650 mg PER 20.3 mL UD PO PRN (10:45)
[2021-07-13] MEDS: DOCUSATE ORAL LIQUID 100 MG/10 ML UD GT SCH ×2 (10:48→21:01)
[2021-07-13] MEDS: VORICONAZOLE INJ 400 MG in D5W 5% 250 ML IV SCH ×2 (10:48→22:15)
[2021-07-13] MEDS: PANTOPRAZOLE 40 MG/10 ML VIAL INJ IV SCH ×2 (10:48→21:01)
[2021-07-13] MEDS: ASCORBIC ACID 1,000 MG TAB PO SCH (10:49)
[2021-07-13] MEDS: FLORASTOR (S. BOULARDII) 250 MG CAP PO SCH (10:49)
[2021-07-13] MEDS: ZINC SULFATE 220mg CAP or TAB PO SCH (10:49)
[2021-07-13] MEDS: CHOLECALCIFEROL (VITD3) 2,000 UNIT CAP/TAB PO SCH (10:57)
[2021-07-13] MEDS: ENOXAPARIN SOD 120 MG/0.8 ML SYRINGE SC SCH ×2 (10:58→21:16)
[2021-07-13] MEDS ORDERED: VANCOMYCIN PER PHARMACY 0 MG IV SCH (11:00)
[2021-07-13] MEDS ORDERED: levoFLOXacin 750MG 150 ML IV ONE (11:15)
[2021-07-13 12:00] LABS: Albumin 1.2 g/dL (3.4-5.0)
[2021-07-13] MEDS ORDERED: ROCURONIUM 10MG/ML 10ML VIAL IV ONE (12:00)
[2021-07-13] MEDS: SODIUM CHLORIDE 0.9% 1,000 ML IV SCH (12:00)
[2021-07-13] MEDS ORDERED: CEFEPIME 1 GM in SODIUM CHL 0.9% 50 ML IV ONE (12:15)
[2021-07-13] MEDS ORDERED: DEXTROSE (50%) 50ML SYRG IV PRN (12:15)
[2021-07-13] MEDS ORDERED: DexAMETHasone SOD PHOS 4 MG/1ML SDV INJ IV ONE (12:15)
[2021-07-13] MEDS: fentaNYL Drip 2500mCg/250mlNS 250 ML IV SCH (13:04)
[2021-07-13] MEDS ORDERED: VANCOMYCIN 750mg/250ml 250 ML IV SCH (14:00)
[2021-07-13 14:17] LABS: Band Neutrophils % (manual) 13; Eosinophils % (manual) 4 (0-7); Lymphocytes % (manual) 3 (10.0-50.0); Metamyelocytes % 1; Monocytes % (manual) 2 (0-12)
[2021-07-13] MEDS ORDERED: CEFEPIME 1 GM in SODIUM CHL 0.9% 50 ML IV SCH (15:00)
[2021-07-13] MEDS: VANCOMYCIN 750mg/250ml 250 ML IV SCH (16:12)
[2021-07-13] MEDS: CEFEPIME 1 GM in SODIUM CHL 0.9% 50 ML IV SCH (17:34)
[2021-07-13] MEDS ORDERED: ROCURONIUM 10MG/ML 10ML VIAL IV PRN (19:45)
[2021-07-13] MEDS ORDERED: TPN PER PHARMACY IV NR ×9 (20:00)
[2021-07-13] MEDS ORDERED: ALBUMIN 25% 100 ML IV STA (23:09)
[2021-07-14] VITALS (62 sets, daily range): BP systolic 67–106; BP diastolic 36–62
[2021-07-14] MEDS: CEFEPIME 1 GM in SODIUM CHL 0.9% 50 ML IV SCH ×2 (01:00→08:48)
[2021-07-14] MEDS ORDERED: NOREPINEPHRINE 8 MG/250ML KIT 250 ML IV ONE (01:02)
[2021-07-14] MEDS: NOREPINEPHRINE 8 MG/250ML KIT 250 ML IV SCH ×3 (01:15→11:43)
[2021-07-14] MEDS: SODIUM CHLORIDE 0.9% 1,000 ML IV SCH (01:20)
[2021-07-14] MEDS: VANCOMYCIN 750mg/250ml 250 ML IV SCH (04:20)
[2021-07-14] MEDS: InsuLIN REG 1unit/0.01ml Soln (100units/ml) SC SCH ×2 (06:00→12:00)
[2021-07-14] MEDS: ACCU-CHEK COMFORT CURVE STRIP VI SCH ×2 (06:00→12:02)
[2021-07-14] MEDS: METOCLOPRAMIDE HCL 5MG/ml INJ 2ml VIAL IV SCH ×2 (06:00→12:32)
[2021-07-14] MEDS: ALBUTEROL SULF 2.5 MG/0.5ML(0.5%) NEB SOLN NEB PRN (06:22)
[2021-07-14] MEDS: BUDESONIDE (INHALATION) 0.5 MG/2 ML NEB NEB SCH (06:22)
[2021-07-14] MEDS: IPRATROPIUM BROM 0.5 MG/2.5ML INH SOL NEB SCH (06:22)
[2021-07-14] MEDS ORDERED: PHENYLEPHRINE IV 250 ML IV ONE (07:58)
[2021-07-14] MEDS: PHENYLEPHRINE IV 250 ML IV SCH ×2 (08:05→12:14)
[2021-07-14 08:45] LABS: Hematocrit 29.2 % (41.0-53.0); Hemoglobin 9.6 g/dL (13.5-17.5); Mean Corpuscular Hemoglobin 30.7 pg (28.0-32.0); Mean Corpuscular Hgb Conc. 32.9 g/dL (32.0-36.0); Mean Corpuscular Volume 93.5 fL (80.0-100.0); Red Blood Cells 3.13 10^6/uL (4.5-5.90); Red Cell Distribution Width 17.6 % (11.8-14.3); White Blood Cell 25.6 10^3/uL (4.4-10.8)
[2021-07-14 08:54] LABS: Basophils % (manual) 0 (0.0-2.0); Blast Cells 0; Metamyelocytes % 0; Myelocytes % 0; Promyelocytes % 0; Reactive Lymphocytes 0
[2021-07-14 09:04] LABS: Anion Gap 14 (5-15); Calcium 7.2 mg/dL (8.5-10.1); Carbon Dioxide 19 mmol/L (21-32); Chloride 91 mmol/L (98-107); GFR African American 36 mL/min; GFR Non-African American 30 mL/min; Glucose 347 mg/dL (74-106); Magnesium 2.2 mg/dL (1.6-2.6); Sodium 124 mmol/L (136-145)
[2021-07-14 09:12] LABS: Alkaline Phosphatase 215 U/L (45-117); Bilirubin, Total 2.2 mg/dL (0.2-1.0); Phosphorus 7.8 mg/dL (2.5-4.90)
[2021-07-14 09:33] LABS: Blood Urea Nitrogen 77 mg/dL (7-18)
[2021-07-14 09:37] LABS: BUN/Creatinine Ratio 32.5
[2021-07-14 09:38] LABS: CRP High Sensitivity > 19 mg/dL (< 0.3)
[2021-07-14 09:40] LABS: Potassium 5.6 mmol/L (3.5-5.1)
[2021-07-14 09:41] LABS: Aspartate Aminotransferase 108 U/L (15-37); Total Protein 5.8 g/dL (6.4-8.2)
[2021-07-14 09:54] LABS: Alanine Aminotransferase 81 U/L (16-61)
[2021-07-14] MEDS: ENOXAPARIN SOD 120 MG/0.8 ML SYRINGE SC SCH (09:55)
[2021-07-14] MEDS: ASCORBIC ACID 1,000 MG TAB PO SCH (09:56)
[2021-07-14] MEDS: MIDAZOLAM DRIP 50 mg/50mL 50 ML IV SCH (09:56)
[2021-07-14] MEDS: DOCUSATE ORAL LIQUID 100 MG/10 ML UD GT SCH (09:56)
[2021-07-14] MEDS: CHOLECALCIFEROL (VITD3) 2,000 UNIT CAP/TAB PO SCH (09:56)
[2021-07-14] MEDS: PANTOPRAZOLE 40 MG/10 ML VIAL INJ IV SCH (09:56)
[2021-07-14] MEDS: ZINC SULFATE 220mg CAP or TAB PO SCH (09:56)
[2021-07-14] MEDS: FLORASTOR (S. BOULARDII) 250 MG CAP PO SCH (09:56)
[2021-07-14] MEDS: INSULIN LANTUS (GLARGINE) 1 /0.01ml (100units/ml) SC SCH (09:59)
[2021-07-14] MEDS ORDERED: DexAMETHasone SOD PHOS 4 MG/1ML SDV INJ IV SCH (10:00)
[2021-07-14] MEDS ORDERED: AMINO ACID INFUSION IN D10W 1,000 ML IV NR (10:15)
[2021-07-14 10:43] LABS: INR 1.1 (0.9-1.15)
[2021-07-14] MEDS ORDERED: SODIUM ZIRCONIUM CYCL 10 GM PAK PO ONE ×2 (10:45→11:00)
[2021-07-14] MEDS ORDERED: VORICONAZOLE 50 MG TAB GT SCH (11:00)
[2021-07-14] MEDS ORDERED: ALBUMIN 25% 100 ML IV ONE ×2 (11:00)
[2021-07-14] MEDS ORDERED: SODIUM CHLORIDE 0.9% 500 ML IV ONE (11:00)
[2021-07-14] MEDS ORDERED: FUROSEMIDE 20 MG/2 ML VIAL IV ONE (11:00)
[2021-07-14 11:12] LABS: Band Neutrophils % (manual) 21; Eosinophils % (manual) 3 (0-7); Lymphocytes % (manual) 6 (10.0-50.0); Monocytes % (manual) 4 (0-12)
[2021-07-14] MEDS ORDERED: ALBUTEROL SULF 2.5 MG/0.5ML(0.5%) NEB SOLN NEB ONE (11:30)
[2021-07-14] MEDS ORDERED: SODIUM BICARBONATE 50ML VIAL 150 ML in D5W 5% 1,000 ML IV SCH (11:30)
[2021-07-14] MEDS ORDERED: BUMETANIDE 2.5mg/10ml (0.25 mg/ml) INJ IV ONE (11:30)
[2021-07-14] MEDS ORDERED: CALCIUM GLUC 1,000mg/50ml-NS 50 ML IV ONE (11:30)
[2021-07-14] MEDS ORDERED: SODIUM BICARBONATE 8.4% INJ 50ML SYRINGE IV ONE (11:30)
[2021-07-14] MEDS: PROPOFOL 100 ML IV SCH (12:13)
[2021-07-14] MEDS ORDERED: SODIUM ZIRCONIUM CYCL 10 GM PAK PO SCH ×2 (14:00)
[2021-07-14] MEDS ORDERED: MORPHINE SULFATE INJECTION 2 MG/ML SYRG ONE (14:43)
[2021-07-14] MEDS ORDERED: LORazepam 2MG/ML-1ML VIAL ONE (14:44)
[2021-07-14] MEDS ORDERED: MORPHINE SULFATE INJECTION 2 MG/ML SYRG IV PRN (14:45)
[2021-07-14] MEDS ORDERED: CEFEPIME 1 GM in SODIUM CHL 0.9% 50 ML IV SCH (15:00)
[2021-07-14] MEDS ORDERED: LORazepam 2MG/ML-1ML VIAL IV PRN (15:00)
[2021-07-14] MEDS ORDERED: LINEZOLID 600MG/300ML 300 ML IV SCH (18:00)
[2021-07-14] MEDS ORDERED: TPN PER PHARMACY IV NR ×6 (20:00)
[2021-07-15] MEDS ORDERED: levoFLOXacin 750MG 150 ML IV SCH (12:00)
== END 2021-07-14 19:27 | DRG 4 ==
LOC: EDBD 11:17 → ER 11:17 → TELE 14:08 → DOU IN ICU 06-26 15:30
PROVIDERS: ADMIT Internal Medicine; ATTEND Internal Medicine
PROC: 5A1955Z Respiratory Ventilation, Greater than 96 Consecutive Hours (ICD-10-PCS; 2021-06-22)
PROC: 0BH17EZ Insertion of Endotracheal Airway into Trachea, Via Natural or Artificial Opening (ICD-10-PCS; 2021-06-22)
PROC: XW033E5 Introduction of Remdesivir Anti-infective into Peripheral Vein, Percutaneous Approach, New Technology Group 5 (ICD-10-PCS; principal; 2021-06-23)
PROC: 02H633Z Insertion of Infusion Device into Right Atrium, Percutaneous Approach (ICD-10-PCS; 2021-07-06)
PROC: 0DH63UZ Insertion of Feeding Device into Stomach, Percutaneous Approach (ICD-10-PCS; 2021-07-12)
PROC: 0B110F4 Bypass Trachea to Cutaneous with Tracheostomy Device, Open Approach (ICD-10-PCS; 2021-07-12 11:31)
DX: A41.89 Other specified sepsis (principal); E11.10 Type 2 diabetes mellitus with ketoacidosis without coma; U07.1 COVID-19; G93.41 Metabolic encephalopathy; J12.82 Pneumonia due to coronavirus disease 2019; J15.1 Pneumonia due to Pseudomonas; J96.01 Acute respiratory failure with hypoxia; Z66 Do not resuscitate; K72.00 Acute and subacute hepatic failure without coma; R65.21 Severe sepsis with septic shock; N17.0 Acute kidney failure with tubular necrosis; E87.0 Hyperosmolality and hypernatremia; E87.4 Mixed disorder of acid-base balance; I82.402 Acute embolism and thrombosis of unspecified deep veins of left lower extremity; J95.851 Ventilator associated pneumonia; J98.11 Atelectasis; Z99.11 Dependence on respirator [ventilator] status; I82.432 Acute embolism and thrombosis of left popliteal vein; E11.22 Type 2 diabetes mellitus with diabetic chronic kidney disease; E55.9 Vitamin D deficiency, unspecified; E66.9 Obesity, unspecified; E87.5 Hyperkalemia; F17.200 Nicotine dependence, unspecified, uncomplicated; I12.9 Hypertensive chronic kidney disease with stage 1 through stage 4 chronic kidney disease, or unspecified chronic kidney disease; I25.10 Atherosclerotic heart disease of native coronary artery without angina pectoris; K59.00 Constipation, unspecified; E87.6 Hypokalemia; L89.152 Pressure ulcer of sacral region, stage 2; N18.9 Chronic kidney disease, unspecified; I25.2 Old myocardial infarction; Z79.4 Long term (current) use of insulin; Z82.3 Family history of stroke; Z83.3 Family history of diabetes mellitus
CPT/HCPCS: 31500; 36415; 36556; 36569; 36600; 51702; 70450; 71045; 74018; 80048; 80053; 80076; 80307; 81001; 82010; 82040; 82150; 82306; 82550; 82728; 82805; 82962; 83036; 83605; 83615; 83690; 83735; 83880; 84100; 84478; 84484; 85007; 85014; 85018; 85025; 85027; 85379; 85610; 85730; 86141; 86635; 86850; 86900; 86901; 87040; 87070; 87077; 87081; 87086; 87088; 87186; 87205; 87426; 93005; 93306; 93970; 94003; 94640; 95819; 96361; 96372; 96374; 99291; C9113; G0378; J0330; J0696; J1100; J1815; J1956; J2185; J2248; J2250; J2704; J3465; J3480; J7060; J7131; P9047